=== PATIENT | female | born 1940 | race Caucasian/White ===

== ENCOUNTER 2016-10-16 11:48 | Inpatient (IN) | payer MEDICARE, OTHER ==
[~2016-10-16] VITALS: Ht 165.1 cm; Wt 110.2 kg
[~2016-10-16 11:48] MED LIST: ACIPHEX20 MG PO; AKWA TEARS15 ML BOTH EYES; AMARYL1 MG PO; CLEOCIN HCL300 MG PO; CLINDAMYCIN HC300 MG ORAL; DIOVAN HCT 80-1 EACH PO; FUROSEMIDE40 MG/4 ML IVP; GLIMEPIRIDE1 MG ORAL; JANUVIA100 MG PO; JANUVIA25 MG ORAL; OYST CAL D PO; PROMETHAZINE/COD5 ML PO; PROTONIX40 M1 IVP; SENNA LAX8.6 MG PO; SINGULAIR10 MG PO; SYNTHROID200 MCG PO; SYNTHROID25 MCG ORAL; VESICARE5 MG PO; VIBRAMYCIN100 MG ORAL; VITAMIN D3 PO
[2016-10-16] MEDS ORDERED: ROBITUSSIN AC5 ML ORAL (14:12)
[2016-10-16] MEDS ORDERED: MYRBETRIQ50 MG PO (14:12)
[2016-10-16] MEDS ORDERED: VENTOLIN HFA18 GM INH (14:12)
[2016-10-16] MEDS ORDERED: PERFOROMIS20 MCG/2 M IH (14:12)
[2016-10-16] MEDS ORDERED: NEURONTIN100 MG ORAL (14:12)
[2016-10-16] MEDS ORDERED: VAGIFEM10 MC1 VG (14:12)
[2016-10-16] MEDS ORDERED: IMITREX50 MG ORAL (14:12)
[2016-10-16] MEDS ORDERED: CLOTRIMAZOLE15 GM TOPIC (14:12)
[2016-10-16] MEDS ORDERED: NASONEX17 GM NASAL (14:12)
[2016-10-16] MEDS ORDERED: GLIMEPIRIDE1 MG ORAL (14:12)
[2016-10-16] MEDS ORDERED: RESTASIS1 EACH BOTH EYES (14:12)
[2016-10-16] MEDS ORDERED: FUROSEMIDE20 M1 ORAL (14:12)
[2016-10-16] MEDS ORDERED: DIOVAN HCT 1601 EAC1 ORAL (14:12)
[2016-10-16] MEDS ORDERED: DEXILANT60 MG ORAL (14:12)
[2016-10-16] MEDS ORDERED: CLARITIN10 MG ORAL (14:12)
[2016-10-16] MEDS ORDERED: PATADAY2.5 ML BOTH EYES (14:12)
[2016-10-16] MEDS ORDERED: PULMICORT0.5 MG/2 M IH (14:12)
[2016-10-16] MEDS ORDERED: DuoNeb 0.5-3(2.5)mg/3ml neb HHN PRN (14:15)
[2016-10-16] MEDS ORDERED: Zolpidem 5mg tab ORAL PRN (14:15)
--- NOTE | 2016-10-16 15:30 | Diagnostic Imaging Report ---
Indication: Dyspnea Comparison: 04/30/16 A single view chest radiograph was obtained. Findings: Pulmonary vascularity is prominent. Heart is enlarged. There is suggestion of basilar atelectasis. The findings are similar to the last study. Old rib fractures again noted on the left. Impression: CHF Basilar atelectasis
[2016-10-16] MEDS ORDERED: Clobetasol Cream 0.05% 15gm TOPIC PRN (15:45)
[2016-10-16] MEDS ORDERED: guaiFENesin w/Codeine 5ml Liq ud ORAL PRN (15:45)
[2016-10-16] MEDS ORDERED: SUMAtriptan 100mg tab ORAL PRN (15:45)
[2016-10-16 16:05] VITALS: BP 98/47
[2016-10-16 16:18] LABS: ABG ALLEN TEST POSITIVE; ABG BASE EXCESS 8.9; ABG PCO2 91.1 mmHg (35.0-45.0)
--- NOTE | 2016-10-16 16:21 | History & Physical ---
History and Physical History & Physicial Vital Signs -Extended Height: 65 inches Weight: 300 pounds Temperature: 98.6 degrees F ( oral) Pulse rate: 86 /min Pulse rhythm: regular Respirations: 12 /min O2 Sat: 66% Blood Pressure: 111/66 mm Hg Calculations Body Mass Index: 50.10 Body Surface Area (m2): 2.35 History of Present Illness Hx. Source: patient Primary complaint: FOLLOW UP Duration: days Trend of sx: worsening Fever: none Treatment: see med list Trend of Tx: worsens Additional HPI: 76 year old female patient presents today for evaluation for severe shortness of breath and significant hypoxemia which is worsening in severity. Patient is severely short of breath and congested. Patient is taking her prescribed medications as directed and is compliant. Patient refused hospitalization Patient admits to shortness of breath, cough, sputum production, chest tightness , and difficulty taking a breath. Patient also admits to some nasal congestion. Active Medications (reviewed today): LASIX 20 MG TABS (FUROSEMIDE) 1 by mouth every am GUAIFENESIN AC 100-10 MG/5ML ORAL SYRP (GUAIFENESIN-CODEINE) 5 cc q 4hr prn TOBRADEX 0.3-0.1 % OPHTH SUSP (TOBRAMYCIN-DEXAMETHASONE) 2 drips qid x 7 days GABAPENTIN 300 MG ORAL CAPS (GABAPENTIN) Take one tablet daily prn VAGIFEM 10 MCG VAG TABS (ESTRADIOL) 2 tabs weekly MYRBETRIQ 50 MG ORAL [id number] (MIRABEGRON) Take one tablet daily SYNTHROID 50 MCG ORAL TABS (LEVOTHYROXINE SODIUM) Take one tablet daily VALSARTAN-HYDROCHLOROTHIAZIDE 160-25 MG ORAL TABS (VALSARTAN-HYDROCHLOROTHIAZIDE ) Take one tablet daily MONTELUKAST SODIUM 10 MG ORAL TABS (MONTELUKAST SODIUM) Take one tablet daily at bedtime SUMATRIPTAN SUCCINATE 100 MG ORAL TABS (SUMATRIPTAN SUCCINATE) SYNTHROID 200 MCG ORAL TABS (LEVOTHYROXINE SODIUM) Take one tablet daily RESTASIS 0.05 % OPHTH EMUL (CYCLOSPORINE) 1 drop in each eye daily CLOTRIMAZOLE 1 % EXT CREA (CLOTRIMAZOLE) apply daily CLOBETASOL PROPIONATE 0.05 % EXT CREA (CLOBETASOL PROPIONATE) apply daily prn FLUOCINONIDE 0.05 % EXT CREA (FLUOCINONIDE) apply directed prn MOMETASONE FUROATE 0.1 % EXT CREA (MOMETASONE FUROATE) apply directed prn EPIPEN 2-BELIA 0.3 MG/0.3ML SOAJ (EPINEPHRINE) use as directed by prescriber XOLAIR 150 MG SC SOLR (OMALIZUMAB) 225mg sq 2 weeks PULMICORT 0.5 MG/2ML SUSP (BUDESONIDE) inhale twice daily DEXILANT 60 MG CPDR (DEXLANSOPRAZOLE) 1 tab qd VITAMIN D3 1000 UNIT CAPS (CHOLECALCIFEROL) 1 tab bid VESICARE 10 MG TABS (SOLIFENACIN SUCCINATE) 1 tab qd IMITREX 100 MG ORAL TABS (SUMATRIPTAN SUCCINATE) 1 TAB PRN MIGRAINE NASONEX 50 MCG/ACT SUSP (MOMETASONE FUROATE) 2 puffs daily each nostril PATADAY 0.2 % SOLN (OLOPATADINE HCL) 1 DROP EACH EYE DAILY VENTOLIN HFA 108 (90 BASE) MCG/ACT INH AERS (ALBUTEROL SULFATE) 2 puffs ever 4 hours CLARITIN 10 MG TABS (LORATADINE) 1 by mouth every day JANUVIA 100 MG TABS (SITAGLIPTIN PHOSPHATE) 1 tab po daily GLIMEPIRIDE 1 MG ORAL TABS (GLIMEPIRIDE) Take one tablet daily PERFOROMIST 20 MCG/2ML INH NEBU (FORMOTEROL FUMARATE) BID Current Allergies (reviewed today): PENICILLIN (PENICILLIN V POTASSIUM) (Mild) * CITRUS (Mild) Past History Past Medical History (reviewed - no changes required): Patient indicates medical history of hypertension, asthma. Other medical history includes: hypersomnia,leg edema,.anterior mediastianal mass, asthma exacerbation (06/22); recurrent lung mass hospitalized to psychiatric unit [facility] 07/2014 hospitolized due to edema and open wound of the legs Hospital admission to 03/07/16 for leg cellulitis Hospital admission 04/2016 cellulitis and respiratory failure Surgical History (reviewed - no changes required): Patient reports surgical history to include: lung surgery. thymoma removed 2012; underwent radiology (followed by Dr. Palacio) Family History (reviewed - no changes required): Father is . He had thrombophlebitis and it moved to the brain. Mother is . She had a cerebral hemorrhage due to a fall and hitting her head. Social History (reviewed - no changes required): TITA is a retired person. TITA lives alone. She lives at home in [place]. She is widown ; 1 child; TITA's denominational is Christianity. Risk Factors: Smoked Tobacco Use: Never smoker Smokeless Tobacco Use: Never Passive smoke exposure: no Drug use: no HIV high-risk behavior: no Caffeine use: <1 drinks per day Alcohol use: no Seatbelt use: 100 % Sun Exposure: frequently Review of Systems General: weight change due to water weight Eyes: denies blurring, diplopia, irritation, discharge, vision loss, eye pain, photophobia Ear/Nose/Throat: nasal congestion URI symptoms Cardiovascular: peripheral edema with venous changes chronic Respiratory: See HPI Gastrointestinal: Denies nausea, vomiting, diarrhea, constipation, change in bowel habits, abdominal pain, melena, hematochezia, jaundice Genitourinary: stress incontinence ( with cough) Musculoskeletal: arthritis Skin: right leg cellulitis in the past Neurologic: denies transient paralysis, weakness, paresthesias, seizures, syncope, tremors, vertigo Psychiatric: was admitted to psych unit in [place] 2013 Endocrine: denies cold intolerance, heat intolerance, polydipsia, polyphagia, polyuria, weight change Hematologic/Lymphatic: denies abnormal bruising, bleeding, enlarged lymph nodes Allergic/Immunologic: allergic rash under breast and on both arms Physical Exam Respiratory Respiratory Effort: no intercostal retractions or use of accessory muscles Palpation: normal fremitus Auscultation: significant rhonchi and wheezes with poor air entry Cardiovascular Palpation: no thrill or palpable murmurs, no displacement of PMI Auscultation: S1, S2, no rub, or gallop; noted systolic murmur Peripheral Circulation: significant lymphedema and swelling Musculoskeletal Gait and Station: using walker Digits and nails: no clubbing, cyanosis, petechiae, or nodes Assessment Respiratory failure Asthma Hypercapnia Sleep apnea possible pneumonia profound hypoxemia obesity Lymphedema Diabetes Plan IV Steroids IV antibiotics Respiratory care Oxygen therapy ABG routine labs resume home meds BIPAP at HS and PRN oxygen therapy and titrate guarded overall PHIL VELASCO Oct 16, 2016 16:21
[2016-10-16 16:23] LABS: ANION GAP 9 (5-15); BASOPHILS % (AUTO) 1.3 % (0.0-2.0); CALCIUM 8.9 mg/dL (8.6-10.2); CARBON DIOXIDE 34 mEQ/L (20-30); CHLORIDE 95 mEQ/L (98-107); CREATININE 0.7 mg/dL (0.5-0.9); EOSINOPHILS % (AUTO) 0.7 % (0.0-3.0); HEMOLYSIS 3; LYMPHOCYTES % (AUTO) 8.5 % (20.0-45.0); MEAN CORPUSCULAR HEMOGLOBIN 26.9 PG (27.0-31.0); MEAN CORPUSCULAR HGB CONC 31.1 G/DL (32.0-36.0); MEAN CORPUSCULAR VOLUME 87 FL (80-99); MEAN PLATELET VOLUME 6.4 FL (6.5-10.1); MONOCYTES % (AUTO) 9.4 % (1.0-10.0); NEUTROPHILS % (AUTO) 80.2 % (45.0-75.0); PLATELET COUNT 275 K/UL (150-450); POTASSIUM 4.6 mEQ/L (3.4-4.9); RED BLOOD COUNT 4.39 M/UL (4.20-5.40); RED CELL DISTRIBUTION WIDTH 15.6 % (11.6-14.8); SODIUM 138 mEQ/L (135-145)
[2016-10-16] MEDS ORDERED: Montelukast 10mg tablet ORAL SCH (16:30)
[2016-10-16] MEDS: NovoLOG Insulin Flexpen SUBQ SCH ×3 (17:30→20:51)
[2016-10-16] MEDS: Vitamin D 1000 IU Tab ORAL SCH (18:00)
[2016-10-16] MEDS ORDERED: cefTRIAXone 1 GM in D5W 55 ML IVPB SCH (18:00)
[2016-10-16] MEDS ORDERED: Vancomycin 1.5 GM/D5W 325 ML IVPB ONE ×2 (19:00)
[2016-10-16] MEDS: Budesonide HHN 0.25mg/2ml ud HHN SCH (19:15)
[2016-10-16] MEDS: DuoNeb 0.5-3(2.5)mg/3ml neb HHN SCH ×2 (19:15→22:51)
[2016-10-16 20:00] VITALS: BP 109/53
[2016-10-16] MEDS: Heparin 5000 units/ml inj SUBQ SCH (20:34)
[2016-10-16] MEDS ORDERED: Levofloxacin 500mg tab ORAL SCH (21:00)
[2016-10-16] MEDS: Solu-MEDROL 40mg Inj IVP SCH (21:32)
[2016-10-17] VITALS: BP 111/51
[2016-10-17] MEDS: DuoNeb 0.5-3(2.5)mg/3ml neb HHN SCH ×7 (02:32→23:05)
[2016-10-17 04:00] VITALS: BP_SYST 115; BP_SYST 145; BP_DIAS 49; BP_DIAS 77
[2016-10-17] MEDS: Solu-MEDROL 40mg Inj IVP SCH ×3 (06:07→21:33)
[2016-10-17] MEDS: NovoLOG Insulin Flexpen SUBQ SCH ×4 (06:30→21:40)
[2016-10-17] MEDS ORDERED: sitaGLIPtin 50mg tab ORAL SCH (06:30)
[2016-10-17] MEDS ORDERED: Levothyroxine 125mcg tab ORAL SCH (06:30)
[2016-10-17] MEDS ORDERED: Glimepiride 1mg tab ORAL SCH (06:30)
[2016-10-17] MEDS ORDERED: Vancomycin 1gm in D5W 275ml IVPB SCH (07:00)
[2016-10-17 08:00] VITALS: BP 95/40
[2016-10-17] MEDS: Heparin 5000 units/ml inj SUBQ SCH ×2 (09:00→21:37)
[2016-10-17] MEDS ORDERED: Solifenacin 10mg tab ORAL SCH (09:00)
[2016-10-17] MEDS ORDERED: Irbesartan 150mg tablet ORAL SCH (09:00)
[2016-10-17] MEDS: Vitamin D 1000 IU Tab ORAL SCH ×2 (09:09→18:14)
--- NOTE | 2016-10-17 09:09 | Pulmonology Progress Note ---
Assessment/Plan Assessment/Plan Assessment Respiratory failure Asthma Hypercapnia Sleep apnea CHF profound hypoxemia obesity Lymphedema Diabetes Plan IV Steroids IV antibiotics IV lasix Respiratory care Oxygen therapy ABG routine labs resumed home meds BIPAP at HS and PRN oxygen therapy and titrate guarded overall may benefit from tele transfer; await ABG impression, plan, and exam edited and reviewed in detail care discussed with RN Subjective Allergies: Coded Allergies: [place] (Unverified Allergy, Unknown, 05/06/16) PENICILLINS (Verified Allergy, Unknown, 06/30/12) Subjective sleepy but arouseable uneventful night fluid overloaded Objective Last 24 Hour Vital Signs Date Time Temp Pulse Resp B/P Pulse Ox O2 Delivery O2 Flow Rate FiO2 10/17/16 09:00 95/40 10/17/16 08:00 97.3 74 16 95/40 97 Room Air 10/17/16 07:53 95 Nasal Cannula 4.0 36 10/17/16 07:53 Nasal Cannula 4.0 36 10/17/16 07:41 68 20 98 Nasal Cannula 4.0 36 10/17/16 07:33 65 20 95 Nasal Cannula 4.0 36 10/17/16 04:00 98.0 72 20 115/49 87 Room Air 10/17/16 02:30 75 20 98 Nasal Cannula 4.0 36 10/17/16 02:25 63 20 93 Nasal Cannula 4.0 36 10/17/16 00:00 97.9 90 22 111/51 93 Bi-pap 10/16/16 22:50 72 20 98 Nasal Cannula 4.0 36 10/16/16 22:45 80 20 95 Nasal Cannula 4.0 36 10/16/16 20:00 97.9 66 18 109/53 92 Nasal Cannula 5.0 10/16/16 19:56 70 25 95 Facial 40 10/16/16 19:11 75 20 98 Nasal Cannula 4.0 36 10/16/16 19:06 80 20 98 Nasal Cannula 4.0 36 10/16/16 19:05 83 20 98 Nasal Cannula 4.0 36 10/16/16 19:00 80 20 93 Nasal Cannula 4.0 36 10/16/16 17:23 60 17 95 Facial 40 10/16/16 17:23 60 17 Bi-pap 40 10/16/16 16:05 98.2 105 18 98/47 92 Nasal Cannula 5.0 Intake and Output 10/16/16 10/17/16 19:00 07:00 Intake Total 240 ml Balance 240 ml Intake Oral 240 ml # Voids 2 Objective WDWN female morbidly obese NAD coarse breath sounds bilaterally with some rhonchi [id number] without MRG NABS nontender no HSM no CC significant anasarca nonfocal Laboratory Tests 10/16/16 15:45: White Blood Count 9.0, Red Blood Count 4.39, Hemoglobin 11.8L, Hematocrit 38.0, Mean Corpuscular Volume 87, Mean Corpuscular Hemoglobin 26.9L, Mean Corpuscular Hemoglobin Concent 31.1L, Red Cell Distribution Width 15.6H, Platelet Count 275 , Mean Platelet Volume 6.4L, Neutrophils (%) (Auto) 80.2H, Lymphocytes (%) (Auto ) 8.5L, Monocytes (%) (Auto) 9.4, Eosinophils (%) (Auto) 0.7, Basophils (%) ( Auto) 1.3, Sodium Level 138, Potassium Level 4.6, Chloride Level 95L, Carbon Dioxide Level 34H, Anion Gap 9, Blood Urea Nitrogen 11, Creatinine 0.7, Estimat Glomerular Filtration Rate , Glucose Level 126H, Hemoglobin A1c 6.9H, Calcium Level 8.9 10/16/16 16:05: Arterial Blood pH 7.252L, Arterial Blood Partial Pressure CO2 91.1*H, Arterial Blood Partial Pressure O2 70.7L, Arterial Blood HCO3 39.2H, Arterial Blood Oxygen Saturation 90.3L, Arterial Blood Base Excess 8.9, Jacob Test Positive Current Medications Medications (Trade) Dose Ordered Sig/Chalo Route PRN Reason Start Time Stop Time Status Last Admin Dose Admin Acetaminophen (Tylenol) 650 mg Q4H PRN ORAL Mild Pain/Temp > 100.5 10/16/16 14:15 11/15/16 14:14 Al Hydroxide/Mg Hydroxide (Mylanta) 30 ml Q4H PRN ORAL INDIGESTION 10/16/16 14:15 11/15/16 14:14 Albuterol/ Ipratropium (DuoNeb 0.5-3(2.5)mg/3ml) 3 ml Q4H PRN HHN Shortness of Breath 10/16/16 14:15 10/21/16 14:14 Albuterol/ Ipratropium (DuoNeb 0.5-3(2.5)mg/3ml) 3 ml Q4HRT HHN 10/16/16 19:00 10/21/16 18:59 10/17/16 07:33 Budesonide (Pulmicort) 0.5 mg EVERY 12 HOURS HHN 10/16/16 21:00 11/15/16 20:59 10/16/16 19:15 Clobetasol Propionate (Temovate) 1 applic DAILY PRN TOPIC Itching 10/16/16 15:45 11/15/16 15:44 UNV Clotrimazole (Lotrimin) 1 applic DAILY TOPIC 10/17/16 09:00 11/16/16 08:59 UNV Dextrose (Dextrose 50%) STAT PRN IV Hypoglycemia 10/16/16 15:45 11/15/16 15:44 Estradiol (Estrace) 20 mg QWEEK ORAL 10/16/16 15:45 11/15/16 15:44 UNV Furosemide (Lasix) 20 mg DAILY ORAL 10/17/16 09:00 11/16/16 08:59 Gabapentin (Neurontin) 300 mg DAILYPRN PRN ORAL NEUROPATHIC PAIN 10/16/16 15:45 11/15/16 15:44 Glimepiride (Amaryl) 1 mg ACBREAKFAST ORAL 10/17/16 06:30 11/16/16 06:29 10/17/16 06:06 Guaifenesin/ Codeine Phosphate (Robitussin with codeine) 5 ml Q4H PRN ORAL For Cough 10/16/16 15:45 11/15/16 15:44 Heparin Sodium (Porcine) (Heparin 5000 units/ml) 5,000 units EVERY 12 HOURS SUBQ 10/16/16 21:00 11/15/16 20:59 Hydrochlorothiazide (Hydrodiuril) 25 mg DAILY ORAL 10/17/16 09:00 11/16/16 08:59 Insulin Aspart (NovoLOG) BEFORE MEALS AND HS SUBQ 10/16/16 17:30 11/15/16 17:29 Irbesartan (Avapro) 150 mg DAILY ORAL 10/17/16 09:00 11/16/16 08:59 Levofloxacin (Levaquin) 500 mg QHS ORAL 10/16/16 21:00 10/23/16 20:59 10/16/16 20:32 Levothyroxine Sodium (Synthroid) 250 mcg ACBREAKFAST ORAL 10/17/16 06:30 11/16/16 06:29 10/17/16 06:07 Methylprednisolone Sodium Succinate (Solu-MEDROL) 40 mg EVERY 8 HOURS IVP 10/16/16 22:00 11/15/16 21:59 10/17/16 06:07 Montelukast Sodium (Singulair) 10 mg QPM ORAL 10/16/16 16:30 11/15/16 16:29 10/16/16 16:30 Non-Formulary Medication (Non-Formulary Med) 1 ea DAILY ORAL 10/17/16 09:00 11/16/16 08:59 UNV Pantoprazole (Protonix) 40 mg DAILY ORAL 10/17/16 09:00 11/16/16 08:59 Sitagliptin Phosphate (Januvia) 50 mg ACBREAKFAST ORAL 10/17/16 06:30 11/16/16 06:29 10/17/16 06:07 Solifenacin (Vesicare) 10 mg DAILY ORAL 10/17/16 09:00 11/16/16 08:59 Sumatriptan Succinate (Imitrex) 100 mg DAILY PRN ORAL PRN MIGRAINE 10/16/16 15:45 11/15/16 15:44 Vancomycin HCl 1 ea 1 ea DAILY PRN MISC PRN RX PROTOCOL 10/16/16 17:45 11/15/16 17:44 Vancomycin HCl/ Dextrose (Vancomycin/D5W) 275 ml @ 183.708 mls/hr Q12HR@0700,1900 IVPB 10/17/16 07:00 10/22/16 06:59 10/17/16 06:32 Vitamin D (Vitamin D) 1,000 intlu BID ORAL 10/16/16 18:00 11/15/16 17:59 10/16/16 18:00 Zolpidem Tartrate (Ambien) 10 mg HSPRN PRN ORAL Insomnia 10/16/16 14:15 11/15/16 14:14 PHIL VELASCO Oct 17, 2016 09:09
[2016-10-17 09:18] LABS: ABG PCO2 93.5 mmHg (35.0-45.0)
[2016-10-17 09:19] LABS: ABG ALLEN TEST POSITIVE; ABG BASE EXCESS 6.5
[2016-10-17] MEDS: Budesonide HHN 0.25mg/2ml ud HHN SCH ×2 (09:23→19:10)
[2016-10-17] MEDS ORDERED: guaiFENesin w/Codeine 5ml Liq ud ORAL PRN (11:45)
[2016-10-17 12:00] VITALS: BP 125/72
[2016-10-17 12:01] LABS: ABG BASE EXCESS 9.1; ABG PCO2 97.9 mmHg (35.0-45.0)
[2016-10-17 12:02] LABS: ABG ALLEN TEST POSITIVE
[2016-10-17] MEDS ORDERED: DuoNeb 0.5-3(2.5)mg/3ml neb HHN PRN (14:15)
[2016-10-17] MEDS ORDERED: Zolpidem 5mg tab ORAL PRN (14:15)
--- NOTE | 2016-10-17 14:25 | General Progress Note ---
Assessment/Plan Problem List: (1) Atelectasis vs Pneumonia (2) Possible pneumonia (3) Shortness of breath ICD Codes: R06.02 - Shortness of breath SNOMED: 152625094 (4) Diabetes mellitus ICD Codes: E11.9 - Type 2 diabetes mellitus without complications SNOMED: 08563391 (5) Edema ICD Codes: R60.9 - Edema, unspecified SNOMED: 749405695 (6) Obesity ICD Codes: E66.9 - Obesity, unspecified SNOMED: 124664684 (7) CHF (congestive heart failure), NYHA class IV ICD Codes: I50.9 - Heart failure, unspecified SNOMED: 838949955, 025750455 (8) Asthma ICD Codes: J45.909 - Unspecified asthma, uncomplicated SNOMED: 923943829 Status: not improved Assessment/Plan iv steroids resp rx abx monitor bs dvt/stress ulcer prophylaxis Subjective ROS Limited/Unobtainable: No Constitutional: Reports: malaise, weakness HEENT: Reports: no symptoms Cardiovascular: Reports: no symptoms Respiratory: Reports: cough, shortness of breath, sputum Gastrointestinal/Abdominal: Reports: no symptoms Genitourinary: Reports: no symptoms Neurologic/Psychiatric: Reports: no symptoms Endocrine: Reports: no symptoms Hematologic/Lymphatic: Reports: no symptoms Allergies: Coded Allergies: [place] (Unverified Allergy, Unknown, 05/06/16) PENICILLINS (Verified Allergy, Unknown, 06/30/12) All Systems: reviewed and negative except above Subjective remains congested and sob. +cough. no cp Objective Last 24 Hour Vital Signs Date Time Temp Pulse Resp B/P Pulse Ox O2 Delivery O2 Flow Rate FiO2 10/17/16 13:12 77 17 93 Facial 36 10/17/16 12:00 96.6 60 25 125/72 94 Bi-pap 40 10/17/16 10:52 69 20 94 Nasal Cannula 4.0 36 10/17/16 10:44 61 25 91 Bi-pap 40 10/17/16 10:40 75 23 92 Facial 40 10/17/16 09:31 69 22 96 Nasal Cannula 4.0 36 10/17/16 09:23 68 22 92 Nasal Cannula 4.0 36 10/17/16 09:00 95/40 10/17/16 08:00 97.3 74 16 95/40 97 Room Air 10/17/16 07:53 95 Nasal Cannula 4.0 36 10/17/16 07:53 Nasal Cannula 4.0 36 10/17/16 07:41 68 20 98 Nasal Cannula 4.0 36 10/17/16 07:33 65 20 95 Nasal Cannula 4.0 36 10/17/16 04:00 98.0 72 20 115/49 87 Room Air 10/17/16 02:30 75 20 98 Nasal Cannula 4.0 36 10/17/16 02:25 63 20 93 Nasal Cannula 4.0 36 10/17/16 00:00 97.9 90 22 111/51 93 Bi-pap 10/16/16 22:50 72 20 98 Nasal Cannula 4.0 36 10/16/16 22:45 80 20 95 Nasal Cannula 4.0 36 10/16/16 20:00 97.9 66 18 109/53 92 Nasal Cannula 5.0 10/16/16 19:56 70 25 95 Facial 40 10/16/16 19:11 75 20 98 Nasal Cannula 4.0 36 10/16/16 19:06 80 20 98 Nasal Cannula 4.0 36 10/16/16 19:05 83 20 98 Nasal Cannula 4.0 36 10/16/16 19:00 80 20 93 Nasal Cannula 4.0 36 10/16/16 17:23 60 17 95 Facial 40 10/16/16 17:23 60 17 Bi-pap 40 10/16/16 16:05 98.2 105 18 98/47 92 Nasal Cannula 5.0 Intake and Output 10/16/16 10/17/16 19:00 07:00 Intake Total 240 ml Balance 240 ml Intake Oral 240 ml # Voids 2 Laboratory Tests 10/16/16 15:45: White Blood Count 9.0, Red Blood Count 4.39, Hemoglobin 11.8L, Hematocrit 38.0, Mean Corpuscular Volume 87, Mean Corpuscular Hemoglobin 26.9L, Mean Corpuscular Hemoglobin Concent 31.1L, Red Cell Distribution Width 15.6H, Platelet Count 275 , Mean Platelet Volume 6.4L, Neutrophils (%) (Auto) 80.2H, Lymphocytes (%) (Auto ) 8.5L, Monocytes (%) (Auto) 9.4, Eosinophils (%) (Auto) 0.7, Basophils (%) ( Auto) 1.3, Sodium Level 138, Potassium Level 4.6, Chloride Level 95L, Carbon Dioxide Level 34H, Anion Gap 9, Blood Urea Nitrogen 11, Creatinine 0.7, Estimat Glomerular Filtration Rate , Glucose Level 126H, Hemoglobin A1c 6.9H, Calcium Level 8.9 10/16/16 16:05: Arterial Blood pH 7.252L, Arterial Blood Partial Pressure CO2 91.1*H, Arterial Blood Partial Pressure O2 70.7L, Arterial Blood HCO3 39.2H, Arterial Blood Oxygen Saturation 90.3L, Arterial Blood Base Excess 8.9, Jacob Test Positive 10/17/16 09:08: Arterial Blood pH 7.219*L, Arterial Blood Partial Pressure CO2 93.5*H, Arterial Blood Partial Pressure O2 58.0L, Arterial Blood HCO3 37.3H, Arterial Blood Oxygen Saturation 86.1L, Arterial Blood Base Excess 6.5, Jacob Test Positive 10/17/16 11:43: Arterial Blood pH 7.230*L, Arterial Blood Partial Pressure CO2 97.9*H, Arterial Blood Partial Pressure O2 72.8L, Arterial Blood HCO3 40.1H, Arterial Blood Oxygen Saturation 91.9L, Arterial Blood Base Excess 9.1, Jacob Test Positive Height (Feet): 5 Height (Inches): 5.00 Weight (Pounds): 243 General Appearance: WD/WN, alert Neck: supple Cardiovascular: regular rhythm Respiratory/Chest: crackles/rales, rhonchi - bilaterally, expiratory wheezing Abdomen: normal bowel sounds, non tender, soft, no organomegaly Edema: no edema noted Arm (L), no edema noted Arm (R), no edema noted Leg (L), no edema noted Leg (R), no edema noted Pedal (L), no edema noted Pedal (R), no edema noted Generalized AMBER MARTINEZ Oct 17, 2016 14:25
[2016-10-17 14:35] LABS: ABG BASE EXCESS 9.4; ABG PCO2 86.2 mmHg (35.0-45.0)
[2016-10-17 14:36] LABS: ABG ALLEN TEST POSITIVE
[2016-10-17 15:54] VITALS: BP 133/69
[2016-10-17] MEDS: Montelukast 10mg tablet ORAL SCH (17:05)
[2016-10-17] MEDS ORDERED: Clobetasol Cream 0.05% 15gm TOPIC PRN (18:00)
[2016-10-17 20:00] VITALS: BP 111/69
[2016-10-17] MEDS: Vancomycin 1 GM in D5W 275 ML IVPB SCH (20:25)
[2016-10-17] MEDS: Levofloxacin 500mg tab ORAL SCH (21:33)
[2016-10-18] VITALS: BP 120/56
[2016-10-18] MEDS: DuoNeb 0.5-3(2.5)mg/3ml neb HHN SCH ×6 (03:42→23:02)
[2016-10-18 04:00] VITALS: BP 102/61
[2016-10-18] MEDS: Glimepiride 1mg tab ORAL SCH (06:18)
[2016-10-18] MEDS: Solu-MEDROL 40mg Inj IVP SCH ×3 (06:18→21:57)
[2016-10-18] MEDS: sitaGLIPtin 50mg tab ORAL SCH (06:18)
[2016-10-18] MEDS: Levothyroxine 125mcg tab ORAL SCH (06:19)
[2016-10-18] MEDS: NovoLOG Insulin Flexpen SUBQ SCH ×4 (06:20→20:51)
[2016-10-18 07:11] LABS: ANION GAP 11 (5-15); CALCIUM 8.7 mg/dL (8.6-10.2); CARBON DIOXIDE 33 mEQ/L (20-30); CHLORIDE 95 mEQ/L (98-107); CREATININE 0.6 mg/dL (0.5-0.9); HEMOLYSIS 24; POTASSIUM 5.2 mEQ/L (3.4-4.9); SODIUM 139 mEQ/L (135-145)
[2016-10-18 08:00] VITALS: BP 114/57
--- NOTE | 2016-10-18 08:51 | Pulmonology Progress Note ---
Assessment/Plan Assessment/Plan Assessment Respiratory failure Asthma Hypercapnia Sleep apnea CHF profound hypoxemia obesity Lymphedema Diabetes Plan IV Steroids IV antibiotics IV lasix Respiratory care Oxygen therapy ABG routine labs resumed home meds BIPAP at HS and PRN; now continuous oxygen therapy and titrate guarded overall follow up labs may benefit from tele transfer; await ABG impression, plan, and exam edited and reviewed in detail care discussed with RN Subjective Allergies: Coded Allergies: [place] (Unverified Allergy, Unknown, 05/06/16) PENICILLINS (Verified Allergy, Unknown, 06/30/12) Subjective sleepy but no distress BIPAP acidotic Objective Last 24 Hour Vital Signs Date Time Temp Pulse Resp B/P Pulse Ox O2 Delivery O2 Flow Rate FiO2 10/18/16 08:00 97.7 80 22 114/57 93 Nasal Cannula 6.0 10/18/16 07:20 Nasal Cannula 5.0 40 10/18/16 07:20 80 14 95 Nasal Cannula 40 10/18/16 07:20 81 14 96 Nasal Cannula 5.0 40 10/18/16 07:20 95 Nasal Cannula 5.0 40 10/18/16 04:00 97.5 69 20 102/61 92 Nasal Cannula 5.0 10/18/16 04:00 77 10/18/16 03:48 79 13 99 Bi-pap 40 10/18/16 03:47 78 16 95 Facial 40 10/18/16 03:41 79 14 95 Bi-pap 40 10/18/16 00:47 75 23 94 Facial 40 10/18/16 00:00 97.4 61 22 120/56 94 Bi-pap 40 10/18/16 00:00 75 10/17/16 23:12 76 13 97 Bi-pap 40 10/17/16 23:05 71 20 93 Facial 40 10/17/16 23:04 71 14 93 Bi-pap 40 10/17/16 21:38 76 15 94 Facial 40 10/17/16 20:00 98.0 58 15 111/69 92 Bi-pap 40 10/17/16 20:00 74 10/17/16 19:15 82 22 93 Bi-pap 40 10/17/16 19:12 71 13 93 Bi-pap 40 10/17/16 19:11 71 13 93 Bi-pap 40 10/17/16 19:01 87 24 92 Facial 40 10/17/16 19:00 87 26 94 Bi-pap 40 10/17/16 18:59 Bi-pap 10/17/16 18:59 Bi-pap 40 10/17/16 18:58 94 Bi-pap 40 10/17/16 17:21 66 16 92 Facial 36 10/17/16 16:00 70 10/17/16 15:54 98.1 62 18 133/69 Bi-pap 10/17/16 15:30 63 14 92 Facial 36 10/17/16 15:01 65 20 92 Bi-pap 36 10/17/16 14:51 63 25 92 Bi-pap 40 10/17/16 13:12 77 17 93 Facial 36 10/17/16 12:00 61 10/17/16 12:00 96.6 60 25 125/72 94 Bi-pap 40 10/17/16 11:30 63 10/17/16 10:52 69 20 94 Nasal Cannula 4.0 36 10/17/16 10:44 61 25 91 Bi-pap 40 10/17/16 10:40 75 23 92 Facial 40 10/17/16 09:31 69 22 96 Nasal Cannula 4.0 36 10/17/16 09:23 68 22 92 Nasal Cannula 4.0 36 10/17/16 09:00 95/40 Intake and Output 10/17/16 10/18/16 19:00 07:00 Intake Total 275.000 ml 560 ml Output Total 500 ml Balance 275.000 ml 60 ml Intake Oral 560 ml IV Total 275.000 ml Output Urine Total 500 ml # Voids 2 6 Objective WDWN female morbidly obese NAD coarse breath sounds bilaterally with some rhonchi and crackles [id number] without MRG distant NABS nontender no HSM no CC significant anasarca with minimal improvement noted leg erythema nonfocal Laboratory Tests 10/17/16 09:08: Arterial Blood pH 7.219*L, Arterial Blood Partial Pressure CO2 93.5*H, Arterial Blood Partial Pressure O2 58.0L, Arterial Blood HCO3 37.3H, Arterial Blood Oxygen Saturation 86.1L, Arterial Blood Base Excess 6.5, Jacob Test Positive 10/17/16 11:43: Arterial Blood pH 7.230*L, Arterial Blood Partial Pressure CO2 97.9*H, Arterial Blood Partial Pressure O2 72.8L, Arterial Blood HCO3 40.1H, Arterial Blood Oxygen Saturation 91.9L, Arterial Blood Base Excess 9.1, Jacob Test Positive 10/17/16 14:25: Arterial Blood pH 7.257L, Arterial Blood Partial Pressure CO2 86.2*H, Arterial Blood Partial Pressure O2 59.5L, Arterial Blood HCO3 39.1H, Arterial Blood Oxygen Saturation 87.6L, Arterial Blood Base Excess 9.4, Jacob Test Positive 10/18/16 06:15: Sodium Level 139, Potassium Level 5.2H, Chloride Level 95L, Carbon Dioxide Level 33H, Anion Gap 11, Blood Urea Nitrogen 16, Creatinine 0.6, Estimat Glomerular Filtration Rate , Glucose Level 215H, Calcium Level 8.7, Vancomycin Level Trough 10.1 Current Medications Medications (Trade) Dose Ordered Sig/Chalo Route PRN Reason Start Time Stop Time Status Last Admin Dose Admin Acetaminophen (Tylenol) 650 mg Q4H PRN ORAL Mild Pain/Temp > 100.5 10/17/16 14:15 11/16/16 14:14 Al Hydroxide/Mg Hydroxide (Mylanta) 30 ml Q4H PRN ORAL INDIGESTION 10/17/16 14:15 11/16/16 14:14 Albuterol/ Ipratropium (DuoNeb 0.5-3(2.5)mg/3ml) 3 ml Q4H PRN HHN Shortness of Breath 10/17/16 14:15 10/22/16 14:14 Albuterol/ Ipratropium (DuoNeb 0.5-3(2.5)mg/3ml) 3 ml Q4HRT N 10/17/16 11:00 10/22/16 10:59 10/18/16 07:22 Budesonide (Pulmicort) 0.5 mg EVERY 12 HOURS N 10/17/16 21:00 11/16/16 20:59 10/17/16 19:10 Clobetasol Propionate (Temovate) 1 applic DAILY PRN TOPIC Itching 10/17/16 18:00 11/16/16 17:59 Clotrimazole (Lotrimin) 1 applic DAILY TOPIC 10/18/16 09:00 11/17/16 08:59 UNV Dextrose (Dextrose 50%) STAT PRN IV Hypoglycemia 10/17/16 15:45 11/16/16 15:44 Estradiol (Estrace) 20 mg QWEEK ORAL 10/23/16 15:45 11/22/16 15:44 UNV Furosemide (Lasix) 40 mg DAILY IV 10/17/16 11:00 11/16/16 10:59 10/17/16 12:21 Gabapentin (Neurontin) 300 mg DAILYPRN PRN ORAL NEUROPATHIC PAIN 10/17/16 15:45 11/16/16 15:44 Glimepiride (Amaryl) 1 mg ACBREAKFAST ORAL 10/18/16 06:30 11/17/16 06:29 10/18/16 06:18 Guaifenesin/ Codeine Phosphate (Robitussin with codeine) 5 ml Q4H PRN ORAL For Cough 10/17/16 11:45 11/16/16 11:44 Heparin Sodium (Porcine) (Heparin 5000 units/ml) 5,000 units EVERY 12 HOURS SUBQ 10/17/16 21:00 11/16/16 20:59 10/17/16 21:37 Hydrochlorothiazide (Hydrodiuril) 25 mg DAILY ORAL 10/18/16 09:00 11/17/16 08:59 Insulin Aspart (NovoLOG) BEFORE MEALS AND HS SUBQ 10/17/16 11:30 11/16/16 11:29 10/18/16 06:20 Irbesartan (Avapro) 150 mg DAILY ORAL 10/18/16 09:00 11/17/16 08:59 Levofloxacin (Levaquin) 500 mg QHS ORAL 10/17/16 21:00 10/22/16 21:01 10/17/16 21:33 Levothyroxine Sodium (Synthroid) 250 mcg ACBREAKFAST ORAL 10/18/16 06:30 11/17/16 06:29 10/18/16 06:19 Methylprednisolone Sodium Succinate (Solu-MEDROL) 40 mg EVERY 8 HOURS IVP 10/17/16 14:00 11/16/16 13:59 10/18/16 06:18 Montelukast Sodium (Singulair) 10 mg QPM ORAL 10/17/16 16:30 11/16/16 16:29 10/17/16 17:05 Non-Formulary Medication (Non-Formulary Med) 1 ea DAILY ORAL 10/18/16 09:00 11/17/16 08:59 UNV Pantoprazole (Protonix) 40 mg DAILY ORAL 10/18/16 09:00 11/17/16 08:59 Sitagliptin Phosphate (Januvia) 50 mg ACBREAKFAST ORAL 10/18/16 06:30 11/17/16 06:29 10/18/16 06:18 Solifenacin (Vesicare) 10 mg DAILY ORAL 10/18/16 09:00 11/17/16 08:59 Sumatriptan Succinate (Imitrex) 100 mg DAILY PRN ORAL PRN MIGRAINE 10/18/16 09:00 11/17/16 08:59 Vancomycin HCl (Vanco rx to dose) 1 ea DAILY PRN MISC PRN RX PROTOCOL 10/18/16 09:00 11/17/16 08:59 Vancomycin HCl/ Dextrose (Vancomycin/D5W) 275 ml @ 183.708 mls/hr Q12HR@0800,2000 IVPB 10/17/16 20:00 10/22/16 07:59 10/17/16 20:25 Vitamin D (Vitamin D) 1,000 intlu BID ORAL 10/17/16 18:00 11/16/16 17:59 10/17/16 18:14 Zolpidem Tartrate (Ambien) 5 mg HSPRN PRN ORAL Insomnia 10/17/16 14:15 11/16/16 14:14 PHIL VELASCO Oct 18, 2016 08:51
[2016-10-18] MEDS: Irbesartan 150mg tablet ORAL SCH (09:00)
[2016-10-18] MEDS: Vancomycin 1 GM in D5W 275 ML IVPB SCH ×2 (09:15→20:40)
[2016-10-18] MEDS: Budesonide HHN 0.25mg/2ml ud HHN SCH ×2 (09:19→21:21)
[2016-10-18 09:32] LABS: ABG ALLEN TEST POSITIVE; ABG BASE EXCESS 13.1; ABG PCO2 97.4 mmHg (35.0-45.0)
[2016-10-18] MEDS: Vitamin D 1000 IU Tab ORAL SCH ×2 (09:47→18:29)
[2016-10-18] MEDS: Solifenacin 10mg tab ORAL SCH (09:48)
[2016-10-18] MEDS: Heparin 5000 units/ml inj SUBQ SCH ×2 (09:56→20:46)
[2016-10-18 12:00] VITALS: BP 100/54
[2016-10-18 16:00] VITALS: BP 116/68
[2016-10-18] MEDS: Montelukast 10mg tablet ORAL SCH (16:40)
[2016-10-18 20:00] VITALS: BP 137/77
--- NOTE | 2016-10-18 20:31 | General Progress Note ---
Assessment/Plan Problem List: (1) Atelectasis vs Pneumonia (2) Possible pneumonia (3) Shortness of breath ICD Codes: R06.02 - Shortness of breath SNOMED: 791802039 (4) Diabetes mellitus ICD Codes: E11.9 - Type 2 diabetes mellitus without complications SNOMED: 94538820 (5) Edema ICD Codes: R60.9 - Edema, unspecified SNOMED: 186913453 (6) Obesity ICD Codes: E66.9 - Obesity, unspecified SNOMED: 572337802 (7) CHF (congestive heart failure), NYHA class IV ICD Codes: I50.9 - Heart failure, unspecified SNOMED: 710541823, 236467485 (8) Asthma ICD Codes: J45.909 - Unspecified asthma, uncomplicated SNOMED: 009698998 Status: stable, progressing Assessment/Plan iv steroids resp rx diuresis per pulm abx monitor bs dvt/stress ulcer prophylaxis monitor labs and cxr tenous, minimal improvement Subjective ROS Limited/Unobtainable: No Constitutional: Reports: malaise, weakness HEENT: Reports: no symptoms Cardiovascular: Reports: no symptoms Respiratory: Reports: shortness of breath, sputum, wheezing Gastrointestinal/Abdominal: Reports: no symptoms Genitourinary: Reports: no symptoms Neurologic/Psychiatric: Reports: no symptoms Endocrine: Reports: no symptoms Hematologic/Lymphatic: Reports: no symptoms Allergies: Coded Allergies: [place] (Unverified Allergy, Unknown, 05/06/16) PENICILLINS (Verified Allergy, Unknown, 06/30/12) All Systems: reviewed and negative except above Subjective remains congested and sob. +cough. no chest pain feels a little better still very tenuous. pulm noted. Objective Last 24 Hour Vital Signs Date Time Temp Pulse Resp B/P Pulse Ox O2 Delivery O2 Flow Rate FiO2 10/18/16 18:59 85 16 95 Nasal Cannula 5.0 40 10/18/16 18:46 92 Nasal Cannula 5.0 40 10/18/16 18:46 Nasal Cannula 5.0 40 10/18/16 18:45 40 10/18/16 18:45 83 16 92 Nasal Cannula 5.0 40 10/18/16 16:00 97.9 76 18 116/68 92 Nasal Cannula 5.0 10/18/16 15:13 84 16 95 Nasal Cannula 5.0 40 10/18/16 15:13 85 14 94 Nasal Cannula 40 10/18/16 12:00 98.1 93 22 100/54 98 Mechanical Ventilator 40 10/18/16 12:00 82 10/18/16 11:45 83 14 96 Nasal Cannula 5.0 40 10/18/16 11:45 82 14 95 Nasal Cannula 40 10/18/16 09:40 79 18 94 Facial 40 10/18/16 09:19 71 13 Nasal Cannula 5.0 40 10/18/16 09:19 80 20 91 Nasal Cannula 5.0 40 10/18/16 09:00 99/51 10/18/16 08:00 80 10/18/16 08:00 97.7 80 22 114/57 93 Nasal Cannula 6.0 10/18/16 07:20 Nasal Cannula 5.0 40 10/18/16 07:20 80 14 95 Nasal Cannula 40 10/18/16 07:20 81 14 96 Nasal Cannula 5.0 40 10/18/16 07:20 95 Nasal Cannula 5.0 40 10/18/16 04:00 97.5 69 20 102/61 92 Nasal Cannula 5.0 10/18/16 04:00 77 10/18/16 03:48 79 13 99 Bi-pap 40 10/18/16 03:47 78 16 95 Facial 40 10/18/16 03:41 79 14 95 Bi-pap 40 10/18/16 00:47 75 23 94 Facial 40 10/18/16 00:00 97.4 61 22 120/56 94 Bi-pap 40 10/18/16 00:00 75 10/17/16 23:12 76 13 97 Bi-pap 40 10/17/16 23:05 71 20 93 Facial 40 10/17/16 23:04 71 14 93 Bi-pap 40 10/17/16 21:38 76 15 94 Facial 40 Intake and Output 10/17/16 10/18/16 19:00 07:00 Intake Total 275.000 ml 560 ml Output Total 500 ml Balance 275.000 ml 60 ml Intake Oral 560 ml IV Total 275.000 ml Output Urine Total 500 ml # Voids 2 6 Laboratory Tests 10/18/16 06:15: Sodium Level 139, Potassium Level 5.2H, Chloride Level 95L, Carbon Dioxide Level 33H, Anion Gap 11, Blood Urea Nitrogen 16, Creatinine 0.6, Estimat Glomerular Filtration Rate , Glucose Level 215H, Calcium Level 8.7, Vancomycin Level Trough 10.1 10/18/16 09:11: Arterial Blood pH 7.271L, Arterial Blood Partial Pressure CO2 97.4*H, Arterial Blood Partial Pressure O2 53.0L, Arterial Blood HCO3 43.8H, Arterial Blood Oxygen Saturation 84.6L, Arterial Blood Base Excess 13.1, Jacob Test Positive Height (Feet): 5 Height (Inches): 5.00 Weight (Pounds): 243 General Appearance: WD/WN, alert Neck: supple Cardiovascular: normal rate Respiratory/Chest: accessory muscle use, crackles/rales, rhonchi - bilaterally , expiratory wheezing Abdomen: normal bowel sounds, non tender, soft, no organomegaly, no mass Extremities: non-tender Edema: trace edema Neurologic: esthetician spa II-XII grossly normal, no motor/sensory deficits, alert, oriented x 3, responsive AMBER MARTINEZ Oct 18, 2016 20:31
[2016-10-18] MEDS: Levofloxacin 500mg tab ORAL SCH (20:41)
[2016-10-19 00:58] VITALS: BP 117/78
[2016-10-19] MEDS: DuoNeb 0.5-3(2.5)mg/3ml neb HHN SCH ×6 (03:17→23:18)
[2016-10-19 04:00] VITALS: BP 133/77
[2016-10-19 05:20] LABS: CALCIUM 9.6 mg/dL (8.6-10.2); CHLORIDE 93 mEQ/L (98-107); CREATININE 0.7 mg/dL (0.5-0.9); HEMOLYSIS 0; POTASSIUM 4.5 mEQ/L (3.4-4.9); SODIUM 143 mEQ/L (135-145)
[2016-10-19 05:24] LABS: ANION GAP 10 (5-15); CARBON DIOXIDE 40 mEQ/L (20-30)
[2016-10-19] MEDS: Glimepiride 1mg tab ORAL SCH (05:53)
[2016-10-19] MEDS: Solu-MEDROL 40mg Inj IVP SCH (05:53)
[2016-10-19] MEDS: sitaGLIPtin 50mg tab ORAL SCH (05:54)
[2016-10-19] MEDS: Levothyroxine 125mcg tab ORAL SCH (05:56)
[2016-10-19] MEDS: NovoLOG Insulin Flexpen SUBQ SCH ×4 (05:58→21:00)
[2016-10-19 07:28] LABS: ABG ALLEN TEST POSITIVE; ABG BASE EXCESS 12.5; ABG PCO2 86.2 mmHg (35.0-45.0)
[2016-10-19 07:42] LABS: BASOPHILS % (AUTO) 0.4 % (0.0-2.0); EOSINOPHILS % (AUTO) 0.3 % (0.0-3.0); MEAN CORPUSCULAR HEMOGLOBIN 26.4 PG (27.0-31.0); MEAN CORPUSCULAR HGB CONC 30.3 G/DL (32.0-36.0); MEAN CORPUSCULAR VOLUME 87 FL (80-99); MEAN PLATELET VOLUME 5.8 FL (6.5-10.1); MONOCYTES % (AUTO) 12.3 % (1.0-10.0); PLATELET COUNT 281 K/UL (150-450); RED BLOOD COUNT 4.54 M/UL (4.20-5.40); RED CELL DISTRIBUTION WIDTH 15.6 % (11.6-14.8); WHITE BLOOD COUNT 8.6 K/UL (4.8-10.8)
[2016-10-19 08:00] VITALS: BP 125/67
--- NOTE | 2016-10-19 08:06 | Pulmonology Progress Note ---
Assessment/Plan Assessment/Plan Assessment Respiratory failure Asthma Hypercapnia Sleep apnea CHF profound hypoxemia obesity Lymphedema Diabetes Plan IV Steroids-dc and monitor IV antibiotics IV lasix Respiratory care Oxygen therapy ABG routine labs and monitor resumed home meds BIPAP at HS and PRN; oxygen therapy and titrate guarded overall follow up labs monitor ABG impression, plan, and exam edited and reviewed in detail care discussed with RN Subjective Allergies: Coded Allergies: [place] (Unverified Allergy, Unknown, 05/06/16) PENICILLINS (Verified Allergy, Unknown, 06/30/12) Subjective more alert BIPAP off but was on last night acidotic but improved Objective Last 24 Hour Vital Signs Date Time Temp Pulse Resp B/P Pulse Ox O2 Delivery O2 Flow Rate FiO2 10/19/16 07:35 95 Nasal Cannula 5.0 10/19/16 04:00 96 10/19/16 04:00 98.0 85 24 133/77 97 Nasal Cannula 4.0 10/19/16 03:45 92 16 100 Nasal Cannula 5.0 40 10/19/16 03:17 40 10/19/16 03:17 71 16 96 Nasal Cannula 5.0 40 10/19/16 00:58 97.7 75 20 117/78 93 Nasal Cannula 4.0 10/19/16 00:00 60 10/18/16 23:15 89 16 95 Bi-pap 40 10/18/16 23:04 40 10/18/16 23:03 87 16 96 Bi-pap 40 10/18/16 22:58 78 24 96 Facial 40 10/18/16 21:35 89 14 97 10/18/16 21:32 89 14 97 Nasal Cannula 5.0 40 10/18/16 21:23 83 14 94 Nasal Cannula 5.0 40 10/18/16 20:00 76 10/18/16 20:00 97.7 83 24 137/77 92 Nasal Cannula 5.0 10/18/16 18:59 85 16 95 Nasal Cannula 5.0 40 10/18/16 18:46 92 Nasal Cannula 5.0 40 10/18/16 18:46 Nasal Cannula 5.0 40 10/18/16 18:45 40 10/18/16 18:45 83 16 92 Nasal Cannula 5.0 40 10/18/16 16:00 97.9 76 18 116/68 92 Nasal Cannula 5.0 10/18/16 16:00 67 10/18/16 15:13 84 16 95 Nasal Cannula 5.0 40 10/18/16 15:13 85 14 94 Nasal Cannula 40 10/18/16 12:00 98.1 93 22 100/54 98 Mechanical Ventilator 40 10/18/16 12:00 82 10/18/16 11:45 83 14 96 Nasal Cannula 5.0 40 10/18/16 11:45 82 14 95 Nasal Cannula 40 10/18/16 09:40 79 18 94 Facial 40 10/18/16 09:19 71 13 Nasal Cannula 5.0 40 10/18/16 09:19 80 20 91 Nasal Cannula 5.0 40 10/18/16 09:00 99/51 Intake and Output 10/18/16 10/19/16 19:00 07:00 Intake Total 895.000 ml 720 ml Balance 895.000 ml 720 ml Intake Oral 620 ml 720 ml IV Total 275.000 ml # Voids 5 11 Objective WDWN female morbidly obese NAD improved breath sounds bilaterally with reduced rhonchi and crackles [id number] without MRG distant NABS nontender no HSM no CC significant anasarca with some improvement noted leg erythema and edema nonfocal Laboratory Tests 10/18/16 09:11: Arterial Blood pH 7.271L, Arterial Blood Partial Pressure CO2 97.4*H, Arterial Blood Partial Pressure O2 53.0L, Arterial Blood HCO3 43.8H, Arterial Blood Oxygen Saturation 84.6L, Arterial Blood Base Excess 13.1, Jacob Test Positive 10/19/16 04:00: White Blood Count 8.6, Red Blood Count 4.54, Hemoglobin 12.0, Hematocrit 39.6, Mean Corpuscular Volume 87, Mean Corpuscular Hemoglobin 26.4L, Mean Corpuscular Hemoglobin Concent 30.3L, Red Cell Distribution Width 15.6H, Platelet Count 281 , Mean Platelet Volume 5.8L, Neutrophils (%) (Auto) 75.0, Lymphocytes (%) (Auto ) 12.0L, Monocytes (%) (Auto) 12.3H, Eosinophils (%) (Auto) 0.3, Basophils (%) ( Auto) 0.4, Sodium Level 143, Potassium Level 4.5, Chloride Level 93L, Carbon Dioxide Level 40H, Anion Gap 10, Blood Urea Nitrogen 19, Creatinine 0.7, Estimat Glomerular Filtration Rate , Glucose Level 125H, Calcium Level 9.6, Phosphorus Level [Pending], Magnesium Level [Pending] 10/19/16 07:15: Arterial Blood pH 7.300L, Arterial Blood Partial Pressure CO2 86.2*H, Arterial Blood Partial Pressure O2 94.0, Arterial Blood HCO3 42.2H, Arterial Blood Oxygen Saturation 95.6, Arterial Blood Base Excess 12.5, Jacob Test Positive Current Medications Medications (Trade) Dose Ordered Sig/Chalo Route PRN Reason Start Time Stop Time Status Last Admin Dose Admin Acetaminophen (Tylenol) 650 mg Q4H PRN ORAL Mild Pain/Temp > 100.5 10/17/16 14:15 11/16/16 14:14 Al Hydroxide/Mg Hydroxide (Mylanta) 30 ml Q4H PRN ORAL INDIGESTION 10/17/16 14:15 11/16/16 14:14 Albuterol/ Ipratropium (DuoNeb 0.5-3(2.5)mg/3ml) 3 ml Q4H PRN HHN Shortness of Breath 10/17/16 14:15 10/22/16 14:14 Albuterol/ Ipratropium (DuoNeb 0.5-3(2.5)mg/3ml) 3 ml Q4HRT HHN 10/17/16 11:00 10/22/16 10:59 10/19/16 03:17 Budesonide (Pulmicort) 0.5 mg EVERY 12 HOURS HHN 10/17/16 21:00 11/16/16 20:59 10/18/16 21:21 Clobetasol Propionate (Temovate) 1 applic DAILY PRN TOPIC Itching 10/17/16 18:00 11/16/16 17:59 Clotrimazole (Lotrimin) 1 applic DAILY TOPIC 10/18/16 09:00 11/17/16 08:59 UNV Dextrose (Dextrose 50%) STAT PRN IV Hypoglycemia 10/17/16 15:45 11/16/16 15:44 Estradiol (Estrace) 20 mg QWEEK ORAL 10/23/16 15:45 11/22/16 15:44 UNV Furosemide (Lasix) 40 mg DAILY IV 10/17/16 11:00 11/16/16 10:59 10/18/16 09:47 Gabapentin (Neurontin) 300 mg DAILYPRN PRN ORAL NEUROPATHIC PAIN 10/17/16 15:45 11/16/16 15:44 Glimepiride (Amaryl) 1 mg ACBREAKFAST ORAL 10/18/16 06:30 11/17/16 06:29 10/19/16 05:53 Guaifenesin/ Codeine Phosphate (Robitussin with codeine) 5 ml Q4H PRN ORAL For Cough 10/17/16 11:45 11/16/16 11:44 Heparin Sodium (Porcine) (Heparin 5000 units/ml) 5,000 units EVERY 12 HOURS SUBQ 10/17/16 21:00 11/16/16 20:59 10/18/16 20:46 Hydrochlorothiazide (Hydrodiuril) 25 mg DAILY ORAL 10/18/16 09:00 11/17/16 08:59 10/18/16 09:45 Insulin Aspart (NovoLOG) BEFORE MEALS AND HS SUBQ 10/17/16 11:30 11/16/16 11:29 10/19/16 05:58 Irbesartan (Avapro) 150 mg DAILY ORAL 10/18/16 09:00 11/17/16 08:59 Levofloxacin (Levaquin) 500 mg QHS ORAL 10/17/16 21:00 10/22/16 21:01 10/18/16 20:41 Levothyroxine Sodium (Synthroid) 250 mcg ACBREAKFAST ORAL 10/18/16 06:30 11/17/16 06:29 10/19/16 05:56 Methylprednisolone Sodium Succinate (Solu-MEDROL) 40 mg EVERY 8 HOURS IVP 10/17/16 14:00 11/16/16 13:59 10/19/16 05:53 Montelukast Sodium (Singulair) 10 mg QPM ORAL 10/17/16 16:30 11/16/16 16:29 10/18/16 16:40 Non-Formulary Medication (Non-Formulary Med) 1 ea DAILY ORAL 10/18/16 09:00 11/17/16 08:59 UNV Pantoprazole (Protonix) 40 mg DAILY ORAL 10/18/16 09:00 11/17/16 08:59 10/18/16 09:47 Sitagliptin Phosphate (Januvia) 50 mg ACBREAKFAST ORAL 10/18/16 06:30 11/17/16 06:29 10/19/16 05:54 Solifenacin (Vesicare) 10 mg DAILY ORAL 10/18/16 09:00 11/17/16 08:59 10/18/16 09:48 Sumatriptan Succinate (Imitrex) 100 mg DAILY PRN ORAL PRN MIGRAINE 10/18/16 09:00 11/17/16 08:59 Vancomycin HCl (Vanco rx to dose) 1 ea DAILY PRN MISC PRN RX PROTOCOL 10/18/16 09:00 11/17/16 08:59 Vancomycin HCl/ Dextrose (Vancomycin/D5W) 275 ml @ 183.708 mls/hr Q12HR@0800,2000 IVPB 10/17/16 20:00 10/22/16 07:59 10/18/16 20:40 Vitamin D (Vitamin D) 1,000 intlu BID ORAL 10/17/16 18:00 11/16/16 17:59 10/18/16 18:29 Zolpidem Tartrate (Ambien) 5 mg HSPRN PRN ORAL Insomnia 10/17/16 14:15 11/16/16 14:14 PHIL VELASCO Oct 19, 2016 08:06
[2016-10-19 08:15] LABS: MAGNESIUM 2.1 mg/dL (1.7-2.5); PHOSPHORUS 3.1 mg/dL (2.5-4.8)
[2016-10-19] MEDS: Budesonide HHN 0.25mg/2ml ud HHN SCH ×2 (09:08→21:10)
[2016-10-19] MEDS: Solifenacin 10mg tab ORAL SCH (09:59)
[2016-10-19] MEDS: Vitamin D 1000 IU Tab ORAL SCH ×2 (09:59→17:43)
[2016-10-19] MEDS: Vancomycin 1 GM in D5W 275 ML IVPB SCH (10:00)
[2016-10-19] MEDS: Irbesartan 150mg tablet ORAL SCH (10:00)
[2016-10-19] MEDS: Heparin 5000 units/ml inj SUBQ SCH ×2 (10:05→21:01)
--- NOTE | 2016-10-19 10:25 | General Progress Note ---
Assessment/Plan Problem List: (1) Atelectasis vs Pneumonia (2) Possible pneumonia (3) Shortness of breath ICD Codes: R06.02 - Shortness of breath SNOMED: 966702377 (4) Diabetes mellitus ICD Codes: E11.9 - Type 2 diabetes mellitus without complications SNOMED: 68508731 (5) Edema ICD Codes: R60.9 - Edema, unspecified SNOMED: 219926706 (6) Obesity ICD Codes: E66.9 - Obesity, unspecified SNOMED: 163193959 (7) CHF (congestive heart failure), NYHA class IV ICD Codes: I50.9 - Heart failure, unspecified SNOMED: 982847378, 827167100 (8) Asthma ICD Codes: J45.909 - Unspecified asthma, uncomplicated SNOMED: 441237194 Status: stable, progressing Assessment/Plan off steroids resp rx diuresis per pulm abx monitor bs dvt/stress ulcer prophylaxis monitor labs and cxr improving Subjective ROS Limited/Unobtainable: No Constitutional: Reports: malaise, weakness HEENT: Reports: no symptoms Cardiovascular: Reports: no symptoms Respiratory: Reports: cough, shortness of breath, sputum, wheezing Gastrointestinal/Abdominal: Reports: no symptoms Genitourinary: Reports: no symptoms Neurologic/Psychiatric: Reports: no symptoms Endocrine: Reports: no symptoms Hematologic/Lymphatic: Reports: no symptoms Allergies: Coded Allergies: [place] (Unverified Allergy, Unknown, 05/06/16) PENICILLINS (Verified Allergy, Unknown, 06/30/12) All Systems: reviewed and negative except above Subjective better. much less congested. pulm noted. off steroids per pulm. Objective Last 24 Hour Vital Signs Date Time Temp Pulse Resp B/P Pulse Ox O2 Delivery O2 Flow Rate FiO2 10/19/16 10:00 125/67 10/19/16 09:12 89 20 96 Nasal Cannula 5.0 10/19/16 09:01 88 18 93 Nasal Cannula 5.0 10/19/16 08:25 89 20 98 Nasal Cannula 5.0 10/19/16 08:11 88 20 92 Nasal Cannula 5.0 10/19/16 08:00 97.7 94 19 125/67 93 Nasal Cannula 5.0 10/19/16 08:00 91 10/19/16 07:42 Nasal Cannula 5.0 10/19/16 07:35 95 Nasal Cannula 5.0 10/19/16 04:00 96 10/19/16 04:00 98.0 85 24 133/77 97 Nasal Cannula 4.0 10/19/16 03:45 92 16 100 Nasal Cannula 5.0 40 10/19/16 03:17 40 10/19/16 03:17 71 16 96 Nasal Cannula 5.0 40 10/19/16 00:58 97.7 75 20 117/78 93 Nasal Cannula 4.0 10/19/16 00:00 60 10/18/16 23:15 89 16 95 Bi-pap 40 10/18/16 23:04 40 10/18/16 23:03 87 16 96 Bi-pap 40 10/18/16 22:58 78 24 96 Facial 40 10/18/16 21:35 89 14 97 10/18/16 21:32 89 14 97 Nasal Cannula 5.0 40 10/18/16 21:23 83 14 94 Nasal Cannula 5.0 40 10/18/16 20:00 76 10/18/16 20:00 97.7 83 24 137/77 92 Nasal Cannula 5.0 10/18/16 18:59 85 16 95 Nasal Cannula 5.0 40 10/18/16 18:46 92 Nasal Cannula 5.0 40 10/18/16 18:46 Nasal Cannula 5.0 40 10/18/16 18:45 40 10/18/16 18:45 83 16 92 Nasal Cannula 5.0 40 10/18/16 16:00 97.9 76 18 116/68 92 Nasal Cannula 5.0 10/18/16 16:00 67 10/18/16 15:13 84 16 95 Nasal Cannula 5.0 40 10/18/16 15:13 85 14 94 Nasal Cannula 40 10/18/16 12:00 98.1 93 22 100/54 98 Mechanical Ventilator 40 10/18/16 12:00 82 10/18/16 11:45 83 14 96 Nasal Cannula 5.0 40 10/18/16 11:45 82 14 95 Nasal Cannula 40 Intake and Output 10/18/16 10/19/16 19:00 07:00 Intake Total 895.000 ml 720 ml Balance 895.000 ml 720 ml Intake Oral 620 ml 720 ml IV Total 275.000 ml # Voids 5 11 Laboratory Tests 10/19/16 04:00: White Blood Count 8.6, Red Blood Count 4.54, Hemoglobin 12.0, Hematocrit 39.6, Mean Corpuscular Volume 87, Mean Corpuscular Hemoglobin 26.4L, Mean Corpuscular Hemoglobin Concent 30.3L, Red Cell Distribution Width 15.6H, Platelet Count 281 , Mean Platelet Volume 5.8L, Neutrophils (%) (Auto) 75.0, Lymphocytes (%) (Auto ) 12.0L, Monocytes (%) (Auto) 12.3H, Eosinophils (%) (Auto) 0.3, Basophils (%) ( Auto) 0.4, Sodium Level 143, Potassium Level 4.5, Chloride Level 93L, Carbon Dioxide Level 40H, Anion Gap 10, Blood Urea Nitrogen 19, Creatinine 0.7, Estimat Glomerular Filtration Rate , Glucose Level 125H, Calcium Level 9.6, Phosphorus Level 3.1, Magnesium Level 2.1 10/19/16 07:15: Arterial Blood pH 7.300L, Arterial Blood Partial Pressure CO2 86.2*H, Arterial Blood Partial Pressure O2 94.0, Arterial Blood HCO3 42.2H, Arterial Blood Oxygen Saturation 95.6, Arterial Blood Base Excess 12.5, Jacob Test Positive Height (Feet): 5 Height (Inches): 5.00 Weight (Pounds): 243 General Appearance: WD/WN, alert Neck: supple Cardiovascular: normal rate, regular rhythm Respiratory/Chest: rhonchi - bilaterally Abdomen: normal bowel sounds, non tender, soft, no organomegaly Edema: no edema noted Arm (L), no edema noted Arm (R), no edema noted Leg (L), no edema noted Leg (R), no edema noted Pedal (L), no edema noted Pedal (R), no edema noted 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
[2016-10-19 12:00] VITALS: BP 113/62
[2016-10-19 16:00] VITALS: BP 100/59
[2016-10-19] MEDS: Montelukast 10mg tablet ORAL SCH (16:24)
[2016-10-19 20:00] VITALS: BP 128/64
[2016-10-19] MEDS: Vancomycin 1.25 GM in D5W 275 ML IVPB SCH (20:10)
[2016-10-19] MEDS: Levofloxacin 500mg tab ORAL SCH (21:00)
[2016-10-20] VITALS: BP 144/80
[2016-10-20] MEDS: DuoNeb 0.5-3(2.5)mg/3ml neb HHN SCH ×6 (03:28→23:25)
[2016-10-20 04:00] VITALS: BP 145/88
[2016-10-20] MEDS: NovoLOG Insulin Flexpen SUBQ SCH ×4 (05:49→20:58)
[2016-10-20] MEDS: Glimepiride 1mg tab ORAL SCH (06:35)
[2016-10-20] MEDS: sitaGLIPtin 50mg tab ORAL SCH (06:35)
[2016-10-20] MEDS: Levothyroxine 125mcg tab ORAL SCH (06:36)
[2016-10-20 07:32] LABS: CALCIUM 9.4 mg/dL (8.6-10.2); CHLORIDE 90 mEQ/L (98-107); CREATININE 0.7 mg/dL (0.5-0.9); HEMOLYSIS 4; POTASSIUM 4.1 mEQ/L (3.4-4.9); SODIUM 140 mEQ/L (135-145)
[2016-10-20 07:41] LABS: ANION GAP 9 (5-15)
[2016-10-20 07:50] LABS: CARBON DIOXIDE 41 mEQ/L (20-30)
[2016-10-20 08:00] VITALS: BP 104/62
[2016-10-20] MEDS: Vancomycin 1.25 GM in D5W 275 ML IVPB SCH (08:37)
[2016-10-20] MEDS: Heparin 5000 units/ml inj SUBQ SCH ×2 (08:38→20:57)
[2016-10-20] MEDS: Solifenacin 10mg tab ORAL SCH (08:39)
[2016-10-20] MEDS: Vitamin D 1000 IU Tab ORAL SCH ×2 (08:39→17:55)
[2016-10-20] MEDS: SUMAtriptan 100mg tab ORAL PRN (08:39)
[2016-10-20] MEDS: Irbesartan 150mg tablet ORAL SCH (09:00)
[2016-10-20] MEDS: Budesonide HHN 0.25mg/2ml ud HHN SCH ×2 (09:05→18:56)
--- NOTE | 2016-10-20 09:54 | Pulmonology Progress Note ---
Assessment/Plan Assessment/Plan Assessment Respiratory failure Asthma Hypercapnia Sleep apnea CHF profound hypoxemia obesity Lymphedema Diabetes Plan IV Steroids-off IV antibiotics- dc IV lasix additional day Respiratory care Oxygen therapy ABG routine labs and monitor resumed home meds BIPAP at HS and PRN; oxygen therapy and titrate guarded overall follow up labs monitor ABG in am impression, plan, and exam edited and reviewed in detail care discussed with RN Subjective Allergies: Coded Allergies: [place] (Unverified Allergy, Unknown, 05/06/16) PENICILLINS (Verified Allergy, Unknown, 06/30/12) Subjective remains alert BIPAP off using at night Objective Last 24 Hour Vital Signs Date Time Temp Pulse Resp B/P Pulse Ox O2 Delivery O2 Flow Rate FiO2 10/20/16 08:00 98.2 73 21 104/62 97 10/20/16 07:42 85 20 100 Nasal Cannula 5.0 40 10/20/16 07:27 Nasal Cannula 5.0 40 10/20/16 07:27 83 20 94 Nasal Cannula 5.0 40 10/20/16 07:27 94 Nasal Cannula 5.0 40 10/20/16 07:27 40 10/20/16 04:00 97.4 89 20 145/88 96 Nasal Cannula 5.0 10/20/16 04:00 82 10/20/16 03:39 92 16 95 Nasal Cannula 5.0 40 10/20/16 03:31 40 10/20/16 03:30 86 16 96 Nasal Cannula 5.0 40 10/20/16 00:00 97.0 99 20 144/80 97 Nasal Cannula 5.0 10/20/16 00:00 82 10/19/16 23:30 88 16 98 Nasal Cannula 5.0 40 10/19/16 23:21 40 10/19/16 23:20 88 16 96 Nasal Cannula 5.0 40 10/19/16 22:00 89 16 99 10/19/16 21:32 92 16 96 Nasal Cannula 5.0 40 10/19/16 21:13 40 10/19/16 21:12 89 16 95 Nasal Cannula 5.0 40 10/19/16 20:00 97.5 87 20 128/64 94 Nasal Cannula 5.0 10/19/16 20:00 87 10/19/16 19:00 81 16 98 Nasal Cannula 5.0 40 10/19/16 18:44 Nasal Cannula 5.0 40 10/19/16 18:43 95 Nasal Cannula 5.0 40 10/19/16 18:43 40 10/19/16 18:43 85 16 96 Nasal Cannula 5.0 40 10/19/16 16:00 83 10/19/16 16:00 98.2 83 22 100/59 96 Nasal Cannula 5.0 10/19/16 15:26 85 20 98 Nasal Cannula 10/19/16 15:15 69 18 94 Nasal Cannula 5.0 10/19/16 12:00 97.5 85 25 113/62 90 Nasal Cannula 5.0 10/19/16 12:00 90 10/19/16 11:05 91 20 100 Bi-pap 30 10/19/16 10:55 65 23 72 Facial 30 10/19/16 10:55 65 23 78 Room Air 5.0 10/19/16 10:00 125/67 Intake and Output 10/19/16 10/20/16 19:00 07:00 Intake Total 395.000 ml 755.000 ml Output Total 400 ml Balance -5.000 ml 755.000 ml Intake Oral 120 ml 480 ml IV Total 275.000 ml 275.000 ml Output Urine Total 400 ml # Voids 2 7 Objective WDWN female morbidly obese NAD improved breath sounds bilaterally with reduced rhonchi and crackles [id number] without MRG distant NABS nontender no HSM no CC significant anasarca with some improvement noted leg erythema and edema nonfocal Laboratory Tests 10/20/16 05:10: Sodium Level 140, Potassium Level 4.1, Chloride Level 90L, Carbon Dioxide Level 41*H, Anion Gap 9, Blood Urea Nitrogen 17, Creatinine 0.7, Estimat Glomerular Filtration Rate , Glucose Level 171H, Calcium Level 9.4 Current Medications Medications (Trade) Dose Ordered Sig/Chalo Route PRN Reason Start Time Stop Time Status Last Admin Dose Admin Acetaminophen (Tylenol) 650 mg Q4H PRN ORAL Mild Pain/Temp > 100.5 10/17/16 14:15 11/16/16 14:14 Al Hydroxide/Mg Hydroxide (Mylanta) 30 ml Q4H PRN ORAL INDIGESTION 10/17/16 14:15 11/16/16 14:14 Albuterol/ Ipratropium (DuoNeb 0.5-3(2.5)mg/3ml) 3 ml Q4H PRN HHN Shortness of Breath 10/17/16 14:15 10/22/16 14:14 Albuterol/ Ipratropium (DuoNeb 0.5-3(2.5)mg/3ml) 3 ml Q4HRT HHN 10/17/16 11:00 10/22/16 10:59 10/20/16 07:27 Budesonide (Pulmicort) 0.5 mg EVERY 12 HOURS HHN 10/17/16 21:00 11/16/16 20:59 10/19/16 21:10 Clobetasol Propionate (Temovate) 1 applic DAILY PRN TOPIC Itching 10/17/16 18:00 11/16/16 17:59 Clotrimazole (Lotrimin) 1 applic DAILY TOPIC 10/18/16 09:00 11/17/16 08:59 UNV Dextrose (Dextrose 50%) STAT PRN IV Hypoglycemia 10/17/16 15:45 11/16/16 15:44 Estradiol (Estrace) 20 mg QWEEK ORAL 10/23/16 15:45 11/22/16 15:44 UNV Furosemide (Lasix) 40 mg DAILY IV 10/17/16 11:00 11/16/16 10:59 10/20/16 08:38 Gabapentin (Neurontin) 300 mg DAILYPRN PRN ORAL NEUROPATHIC PAIN 10/17/16 15:45 11/16/16 15:44 Glimepiride (Amaryl) 1 mg ACBREAKFAST ORAL 10/18/16 06:30 11/17/16 06:29 10/20/16 06:35 Guaifenesin/ Codeine Phosphate (Robitussin with codeine) 5 ml Q4H PRN ORAL For Cough 10/17/16 11:45 11/16/16 11:44 10/19/16 10:00 Heparin Sodium (Porcine) (Heparin 5000 units/ml) 5,000 units EVERY 12 HOURS SUBQ 10/17/16 21:00 11/16/16 20:59 10/20/16 08:38 Hydrochlorothiazide (Hydrodiuril) 25 mg DAILY ORAL 10/18/16 09:00 11/17/16 08:59 10/20/16 08:39 Insulin Aspart (NovoLOG) BEFORE MEALS AND HS SUBQ 10/17/16 11:30 11/16/16 11:29 10/19/16 16:25 Irbesartan (Avapro) 150 mg DAILY ORAL 10/18/16 09:00 11/17/16 08:59 10/19/16 10:00 Levofloxacin (Levaquin) 500 mg QHS ORAL 10/17/16 21:00 10/22/16 21:01 10/19/16 21:00 Levothyroxine Sodium (Synthroid) 250 mcg ACBREAKFAST ORAL 10/18/16 06:30 11/17/16 06:29 10/20/16 06:36 Montelukast Sodium (Singulair) 10 mg QPM ORAL 10/17/16 16:30 11/16/16 16:29 10/19/16 16:24 Non-Formulary Medication (Non-Formulary Med) 1 ea DAILY ORAL 10/18/16 09:00 11/17/16 08:59 UNV Pantoprazole (Protonix) 40 mg DAILY ORAL 10/18/16 09:00 11/17/16 08:59 10/20/16 08:39 Sitagliptin Phosphate (Januvia) 50 mg ACBREAKFAST ORAL 10/18/16 06:30 11/17/16 06:29 10/20/16 06:35 Solifenacin (Vesicare) 10 mg DAILY ORAL 10/18/16 09:00 11/17/16 08:59 10/20/16 08:39 Sumatriptan Succinate (Imitrex) 100 mg DAILY PRN ORAL PRN MIGRAINE 10/18/16 09:00 11/17/16 08:59 10/20/16 08:39 Vancomycin HCl (Vanco rx to dose) 1 ea DAILY PRN MISC PRN RX PROTOCOL 10/18/16 09:00 11/17/16 08:59 Vancomycin HCl/ Dextrose (Vancomycin/D5W) 275 ml @ 183.708 mls/hr Q12HR@0800,2000 IVPB 10/19/16 20:00 10/24/16 19:59 10/20/16 08:37 Vitamin D (Vitamin D) 1,000 intlu BID ORAL 10/17/16 18:00 11/16/16 17:59 10/20/16 08:39 Zolpidem Tartrate 5 mg 5 mg HSPRN PRN ORAL Insomnia 10/17/16 14:15 11/16/16 14:14 PHIL VELASCO Oct 20, 2016 09:54
[2016-10-20 12:00] VITALS: BP 119/69
--- NOTE | 2016-10-20 13:39 | General Progress Note ---
Assessment/Plan Problem List: (1) Atelectasis vs Pneumonia (2) Possible pneumonia (3) Shortness of breath ICD Codes: R06.02 - Shortness of breath SNOMED: 650158400 (4) Diabetes mellitus ICD Codes: E11.9 - Type 2 diabetes mellitus without complications SNOMED: 25681787 (5) Edema ICD Codes: R60.9 - Edema, unspecified SNOMED: 639595644 (6) Obesity ICD Codes: E66.9 - Obesity, unspecified SNOMED: 281853783 (7) CHF (congestive heart failure), NYHA class IV ICD Codes: I50.9 - Heart failure, unspecified SNOMED: 609334400, 429301369 (8) Asthma ICD Codes: J45.909 - Unspecified asthma, uncomplicated SNOMED: 362912495 Status: stable, progressing Assessment/Plan off steroids resp rx diuresis per pulm abx monitor bs dvt/stress ulcer prophylaxis monitor labs and cxr improving Subjective ROS Limited/Unobtainable: No Constitutional: Reports: malaise, weakness HEENT: Reports: no symptoms Cardiovascular: Reports: no symptoms Respiratory: Reports: cough, orthopnea, shortness of breath, sputum, wheezing Gastrointestinal/Abdominal: Reports: no symptoms Genitourinary: Reports: no symptoms Neurologic/Psychiatric: Reports: no symptoms Endocrine: Reports: no symptoms Hematologic/Lymphatic: Reports: no symptoms Allergies: Coded Allergies: [place] (Unverified Allergy, Unknown, 05/06/16) PENICILLINS (Verified Allergy, Unknown, 06/30/12) All Systems: reviewed and negative except above Subjective still sob. less congested. no chest pain on iv lasix. off steroids per pulm. Objective Last 24 Hour Vital Signs Date Time Temp Pulse Resp B/P Pulse Ox O2 Delivery O2 Flow Rate FiO2 10/20/16 12:00 98.2 81 20 119/69 96 Nasal Cannula 5.0 10/20/16 12:00 69 10/20/16 09:00 104/62 10/20/16 08:00 98.2 73 21 104/62 97 10/20/16 08:00 74 10/20/16 07:42 85 20 100 Nasal Cannula 5.0 40 10/20/16 07:27 Nasal Cannula 5.0 40 10/20/16 07:27 83 20 94 Nasal Cannula 5.0 40 10/20/16 07:27 94 Nasal Cannula 5.0 40 10/20/16 07:27 40 10/20/16 04:00 97.4 89 20 145/88 96 Nasal Cannula 5.0 10/20/16 04:00 82 10/20/16 03:39 92 16 95 Nasal Cannula 5.0 40 10/20/16 03:31 40 10/20/16 03:30 86 16 96 Nasal Cannula 5.0 40 10/20/16 00:00 97.0 99 20 144/80 97 Nasal Cannula 5.0 10/20/16 00:00 82 10/19/16 23:30 88 16 98 Nasal Cannula 5.0 40 10/19/16 23:21 40 10/19/16 23:20 88 16 96 Nasal Cannula 5.0 40 10/19/16 22:00 89 16 99 10/19/16 21:32 92 16 96 Nasal Cannula 5.0 40 10/19/16 21:13 40 10/19/16 21:12 89 16 95 Nasal Cannula 5.0 40 10/19/16 20:00 97.5 87 20 128/64 94 Nasal Cannula 5.0 10/19/16 20:00 87 10/19/16 19:00 81 16 98 Nasal Cannula 5.0 40 10/19/16 18:44 Nasal Cannula 5.0 40 10/19/16 18:43 95 Nasal Cannula 5.0 40 10/19/16 18:43 40 10/19/16 18:43 85 16 96 Nasal Cannula 5.0 40 10/19/16 16:00 83 10/19/16 16:00 98.2 83 22 100/59 96 Nasal Cannula 5.0 10/19/16 15:26 85 20 98 Nasal Cannula 10/19/16 15:15 69 18 94 Nasal Cannula 5.0 Intake and Output 10/19/16 10/20/16 19:00 07:00 Intake Total 395.000 ml 755.000 ml Output Total 400 ml Balance -5.000 ml 755.000 ml Intake Oral 120 ml 480 ml IV Total 275.000 ml 275.000 ml Output Urine Total 400 ml # Voids 2 7 Laboratory Tests 10/20/16 05:10: Sodium Level 140, Potassium Level 4.1, Chloride Level 90L, Carbon Dioxide Level 41*H, Anion Gap 9, Blood Urea Nitrogen 17, Creatinine 0.7, Estimat Glomerular Filtration Rate , Glucose Level 171H, Calcium Level 9.4 Height (Feet): 5 Height (Inches): 5.00 Weight (Pounds): 243 Objective General Appearance: WD/WN, alert Neck: supple Cardiovascular: normal rate, regular rhythm Respiratory/Chest: rhonchi - bilaterally Abdomen: normal bowel sounds, non tender, soft, no organomegaly Edema: no edema noted Arm (L), no edema noted Arm (R), no edema noted Leg (L), no edema noted Leg (R), no edema noted Pedal (L), no edema noted Pedal (R), no edema noted Generalized Neurologic: ed transporter II-XII grossly normal, no motor/sensory deficits, alert, oriented x 3, responsive AMBER MARTINEZ Oct 20, 2016 13:39
[2016-10-20 15:10] LABS: ABG ALLEN TEST POSITIVE; ABG BASE EXCESS 20.1; ABG PCO2 80.6 mmHg (35.0-45.0)
[2016-10-20 16:00] VITALS: BP 113/67
[2016-10-20] MEDS: Montelukast 10mg tablet ORAL SCH (16:35)
--- NOTE | 2016-10-20 19:12 | Wound Care Consultation ---
Wound Assessment Wound Assessment : Wound Present on Admission: Yes New Wound: No Status Change of Wound: No Wound Location Body Site Modif: left, right Wound Location Body Site: breast fold Wound Type: rash Mj Test: Does not Mj Wound Drainage Amount: None Wound Drainage Odor: None/Absent Tissue Surrounding Wound: Erythemic Wound General Appearance: Reddened Wound Comment #1 Left and right breast fold rashes Recommendation -Keep clean and dry -Apply topical Nystatin powder as ordered -Optimize nutrition -Assess and f/u accordingly for any changes ELADIO JACOBSEN RN Oct 20, 2016 19:12
[2016-10-20 20:00] VITALS: BP 132/74
[2016-10-20] MEDS: Levofloxacin 500mg tab ORAL SCH (20:57)
[2016-10-21] VITALS (8 sets, daily range): BP systolic 93–130; BP diastolic 56–71
[2016-10-21] MEDS: DuoNeb 0.5-3(2.5)mg/3ml neb HHN SCH ×6 (03:19→23:24)
--- NOTE | 2016-10-21 04:38 | Progress Note ---
DATE: 10/20/2016 CARDIOLOGY PROGRESS NOTE SUBJECTIVE: The patient continues to have some shortness of breath and congestion, but is overall improved. OBJECTIVE: VITAL SIGNS: Blood pressure 104/62 to 145/88, heart rate 73 to 92, respiratory rate 16 to 21, and afebrile. She is on nasal cannula with 5 liters. LUNGS: Bilateral breath sounds. Diminished at bases. Few rales. HEART: Regular rhythm and rate. Normal S1 and S2. ABDOMEN: Obese. EXTREMITIES: With dependent edema. LABORATORY DATA: Notable for sodium 140, potassium 4.1, chloride 90, bicarbonate 41, BUN 17, and creatinine 0.7. ABG is 7.40, 81, and 80. IMPRESSION: 1. Compensated respiratory acidosis. 2. Metabolic alkalosis. 3. Acute on chronic diastolic congestive heart failure. 4. Pulmonary hypertension. PLAN: 1. Discontinue thiazide. 2. Continue furosemide. 3. Add acetazolamide. 4. Transition from IV to oral furosemide over the next 24 hours. 5. Monitor clinical parameters closely. Ivan Bradley M.D. DR: TIGIST JOB#: [id number] CC:
--- NOTE | 2016-10-21 05:58 | Progress Note ---
DATE: 10/19/2016 CARDIOLOGY PROGRESS NOTE SUBJECTIVE: The patient remains congested and shortness of breath noted. She remains on diuretics. She is off steroids. OBJECTIVE: VITALS: Blood pressure 125/67, pulse 94, and respirations 19. Monitored rhythm, sinus. LUNGS: Bilateral breath sounds with few rales. HEART: Regular rhythm and rate. Normal S1 and S2 with a fourth heart sound. ABDOMEN: Soft. EXTREMITIES: With no edema. LABORATORY DATA: Sodium 143, potassium 4.5, bicarbonate 40, BUN 19, and creatinine 0.7. Magnesium 2.1. White count is 8.6 and hemoglobin 12. IMPRESSION: 1. Acute on chronic diastolic congestive heart failure. 2. Sleep apnea. 3. Asthma exacerbation. 4. Acute on chronic respiratory acidosis. 5. Hypoxia. 6. Obesity. 7. Lymphedema. 8. Type 2 diabetes mellitus. 9. Metabolic alkalosis. PLAN: 1. Cautious diuresis. 2. Monitor electrolytes. 3. May need to add acetazolamide in view of worsening alkalosis. 4. DVT and stress ulcer prophylaxis. Ivan Bradley M.D. DR: JAC JOB#: [id number] CC:
[2016-10-21] MEDS: NovoLOG Insulin Flexpen SUBQ SCH ×4 (06:30→21:48)
[2016-10-21] MEDS: Levothyroxine 125mcg tab ORAL SCH (06:44)
[2016-10-21] MEDS: sitaGLIPtin 50mg tab ORAL SCH (06:44)
[2016-10-21] MEDS: Glimepiride 1mg tab ORAL SCH (06:44)
[2016-10-21 06:54] LABS: ANION GAP 12 (5-15); CALCIUM 8.9 mg/dL (8.6-10.2); CARBON DIOXIDE 37 mEQ/L (20-30); CHLORIDE 88 mEQ/L (98-107); CREATININE 0.6 mg/dL (0.5-0.9); HEMOLYSIS 62; POTASSIUM 4.5 mEQ/L (3.4-4.9); SODIUM 137 mEQ/L (135-145)
[2016-10-21] MEDS: Budesonide HHN 0.25mg/2ml ud HHN SCH ×2 (09:18→19:35)
[2016-10-21] MEDS: Vitamin D 1000 IU Tab ORAL SCH ×2 (09:22→19:59)
[2016-10-21] MEDS: Solifenacin 10mg tab ORAL SCH (09:23)
[2016-10-21] MEDS: SUMAtriptan 100mg tab ORAL PRN (09:23)
[2016-10-21] MEDS: Irbesartan 150mg tablet ORAL SCH (09:23)
[2016-10-21] MEDS: Heparin 5000 units/ml inj SUBQ SCH ×2 (09:24→21:47)
[2016-10-21] MEDS: Nystatin Powder 100,000 units/gm 15gm TOPIC SCH ×3 (09:32→20:00)
--- NOTE | 2016-10-21 11:51 | Pulmonology Progress Note ---
Assessment/Plan Assessment/Plan Assessment Respiratory failure Asthma Hypercapnia Sleep apnea CHF profound hypoxemia obesity Lymphedema Diabetes Plan IV Steroids-off and stable IV antibiotics- dcd IV lasix additional day Respiratory care Oxygen therapy ABG routine labs and monitor resumed home meds BIPAP at HS and PRN; oxygen therapy and titrate guarded overall follow up labs monitor ABG; will reorder impression, plan, and exam edited and reviewed in detail care discussed with RN Subjective Allergies: Coded Allergies: [place] (Unverified Allergy, Unknown, 05/06/16) PENICILLINS (Verified Allergy, Unknown, 06/30/12) Subjective remains alert but weaker BIPAP off weak using at night Objective Last 24 Hour Vital Signs Date Time Temp Pulse Resp B/P Pulse Ox O2 Delivery O2 Flow Rate FiO2 10/21/16 11:21 75 18 96 Nasal Cannula 5.0 10/21/16 09:28 87 18 99 Nasal Cannula 5.0 10/21/16 09:23 114/62 10/21/16 09:19 40 10/21/16 09:18 77 16 96 Nasal Cannula 5.0 10/21/16 08:00 97.7 78 20 114/62 91 Nasal Cannula 5.0 10/21/16 08:00 92 10/21/16 07:13 89 18 99 Nasal Cannula 5.0 10/21/16 07:00 88 20 97 Nasal Cannula 5.0 10/21/16 07:00 97 Nasal Cannula 5.0 10/21/16 07:00 Nasal Cannula 5.0 10/21/16 04:00 40 10/21/16 04:00 80 10/21/16 04:00 98.0 83 17 128/64 92 Bi-pap 40 10/21/16 03:22 76 22 99 Facial 30 10/21/16 03:20 40 10/21/16 03:20 88 16 98 Nasal Cannula 5.0 40 10/21/16 03:19 76 18 99 Bi-pap 40 10/21/16 01:14 72 21 97 Facial 30 10/21/16 00:23 72 25 81 Facial 30 10/21/16 00:00 86 10/21/16 00:00 98.1 90 20 130/71 96 Bi-pap 40 10/21/16 00:00 40 10/20/16 23:40 77 19 100 Nasal Cannula 5.0 40 10/20/16 23:25 86 16 96 Nasal Cannula 5.0 40 10/20/16 23:15 40 10/20/16 20:00 87 10/20/16 20:00 97.9 85 28 132/74 95 Nasal Cannula 5.0 10/20/16 19:30 91 19 99 Nasal Cannula 5.0 40 10/20/16 19:29 91 20 100 Nasal Cannula 5.0 40 10/20/16 18:56 40 10/20/16 18:55 94 Nasal Cannula 5.0 40 10/20/16 18:55 81 18 94 Nasal Cannula 5.0 40 10/20/16 18:55 Nasal Cannula 5.0 40 10/20/16 18:55 81 20 94 Nasal Cannula 5.0 40 10/20/16 18:55 40 10/20/16 16:00 85 10/20/16 16:00 96.8 92 21 113/67 94 Nasal Cannula 5.0 10/20/16 15:30 71 19 99 Nasal Cannula 5.0 40 10/20/16 15:14 40 10/20/16 15:14 73 18 97 Nasal Cannula 5.0 40 10/20/16 12:00 98.2 81 20 119/69 96 Nasal Cannula 5.0 10/20/16 12:00 69 Intake and Output 10/20/16 10/21/16 19:00 07:00 Intake Total 380 ml 360 ml Output Total 1893 ml Balance -1513 ml 360 ml Intake Oral 380 ml 360 ml Output Urine Total 1893 ml # Voids 5 Objective WDWN female morbidly obese NAD improved breath sounds bilaterally with reduced rhonchi and crackles [id number] without MRG distant NABS nontender no HSM no CC significant anasarca with some improvement noted leg erythema and edema nonfocal Laboratory Tests 10/20/16 15:00: Arterial Blood pH 7.405, Arterial Blood Partial Pressure CO2 80.6*H, Arterial Blood Partial Pressure O2 79.9, Arterial Blood HCO3 49.4H, Arterial Blood Oxygen Saturation 95.1, Arterial Blood Base Excess 20.1, Jacob Test Positive 10/21/16 03:30: Sodium Level 137, Potassium Level 4.5, Chloride Level 88L, Carbon Dioxide Level 37H, Anion Gap 12, Blood Urea Nitrogen 14, Creatinine 0.6, Estimat Glomerular Filtration Rate , Glucose Level 147H, Calcium Level 8.9, Magnesium Level 2.1, Pro-B-Type Natriuretic Peptide 325 Current Medications Medications (Trade) Dose Ordered Sig/Chalo Route PRN Reason Start Time Stop Time Status Last Admin Dose Admin Acetaminophen (Tylenol) 650 mg Q4H PRN ORAL Mild Pain/Temp > 100.5 10/17/16 14:15 11/16/16 14:14 Acetazolamide (Diamox) 250 mg TWICE A DAY ORAL 10/21/16 09:00 11/20/16 08:59 10/21/16 09:22 Al Hydroxide/Mg Hydroxide (Mylanta) 30 ml Q4H PRN ORAL INDIGESTION 10/17/16 14:15 11/16/16 14:14 Albuterol/ Ipratropium (DuoNeb 0.5-3(2.5)mg/3ml) 3 ml Q4H PRN HHN Shortness of Breath 10/17/16 14:15 10/22/16 14:14 Albuterol/ Ipratropium (DuoNeb 0.5-3(2.5)mg/3ml) 3 ml Q4HRT HHN 10/17/16 11:00 10/22/16 10:59 10/21/16 11:21 Budesonide (Pulmicort) 0.5 mg EVERY 12 HOURS HHN 10/17/16 21:00 11/16/16 20:59 10/21/16 09:18 Clobetasol Propionate (Temovate) 1 applic DAILY PRN TOPIC Itching 10/17/16 18:00 11/16/16 17:59 Clotrimazole (Lotrimin) 1 applic DAILY TOPIC 10/18/16 09:00 11/17/16 08:59 UNV Dextrose (Dextrose 50%) STAT PRN IV Hypoglycemia 10/17/16 15:45 11/16/16 15:44 Estradiol (Estrace) 20 mg QWEEK ORAL 10/23/16 15:45 11/22/16 15:44 UNV Furosemide (Lasix) 40 mg DAILY IV 10/17/16 11:00 11/16/16 10:59 10/21/16 09:24 Gabapentin (Neurontin) 300 mg DAILYPRN PRN ORAL NEUROPATHIC PAIN 10/17/16 15:45 11/16/16 15:44 Glimepiride (Amaryl) 1 mg ACBREAKFAST ORAL 10/18/16 06:30 11/17/16 06:29 10/21/16 06:44 Guaifenesin/ Codeine Phosphate (Robitussin with codeine) 5 ml Q4H PRN ORAL For Cough 10/17/16 11:45 11/16/16 11:44 10/19/16 10:00 Heparin Sodium (Porcine) (Heparin 5000 units/ml) 5,000 units EVERY 12 HOURS SUBQ 10/17/16 21:00 11/16/16 20:59 10/21/16 09:24 Insulin Aspart (NovoLOG) BEFORE MEALS AND HS SUBQ 10/17/16 11:30 11/16/16 11:29 10/19/16 16:25 Irbesartan (Avapro) 150 mg DAILY ORAL 10/18/16 09:00 11/17/16 08:59 10/21/16 09:23 Levofloxacin (Levaquin) 500 mg QHS ORAL 10/17/16 21:00 10/22/16 21:01 10/20/16 20:57 Levothyroxine Sodium (Synthroid) 250 mcg ACBREAKFAST ORAL 10/18/16 06:30 11/17/16 06:29 10/21/16 06:44 Montelukast Sodium (Singulair) 10 mg QPM ORAL 10/17/16 16:30 11/16/16 16:29 10/20/16 16:35 Non-Formulary Medication (Non-Formulary Med) 1 ea DAILY ORAL 10/18/16 09:00 11/17/16 08:59 UNV Nystatin (Nystop Powder) 1 applic THREE TIMES A DAY TOPIC 10/21/16 09:00 11/20/16 08:59 10/21/16 09:32 Pantoprazole (Protonix) 40 mg DAILY ORAL 10/18/16 09:00 11/17/16 08:59 10/21/16 09:22 Sitagliptin Phosphate (Januvia) 50 mg ACBREAKFAST ORAL 10/18/16 06:30 11/17/16 06:29 10/21/16 06:44 Solifenacin (Vesicare) 10 mg DAILY ORAL 10/18/16 09:00 11/17/16 08:59 10/21/16 09:23 Sumatriptan Succinate (Imitrex) 100 mg DAILY PRN ORAL PRN MIGRAINE 10/18/16 09:00 11/17/16 08:59 10/21/16 09:23 Vancomycin HCl (Vanco rx to dose) 1 ea DAILY PRN MISC PRN RX PROTOCOL 10/18/16 09:00 11/17/16 08:59 Vitamin D (Vitamin D) 1,000 intlu BID ORAL 10/17/16 18:00 11/16/16 17:59 10/21/16 09:22 Zolpidem Tartrate (Ambien) 5 mg HSPRN PRN ORAL Insomnia 10/17/16 14:15 11/16/16 14:14 PHIL VELASCO Oct 21, 2016 11:51
[2016-10-21 12:48] LABS: ABG ALLEN TEST POSITIVE; ABG BASE EXCESS 17.7; ABG PCO2 60.4 mmHg (35.0-45.0)
[2016-10-21] MEDS: Montelukast 10mg tablet ORAL SCH (16:35)
--- NOTE | 2016-10-21 17:35 | General Progress Note ---
Assessment/Plan Problem List: (1) Atelectasis vs Pneumonia (2) Possible pneumonia (3) Shortness of breath ICD Codes: R06.02 - Shortness of breath SNOMED: 699342960 (4) Diabetes mellitus ICD Codes: E11.9 - Type 2 diabetes mellitus without complications SNOMED: 37139228 (5) Edema ICD Codes: R60.9 - Edema, unspecified SNOMED: 858125871 (6) Obesity ICD Codes: E66.9 - Obesity, unspecified SNOMED: 337454266 (7) CHF (congestive heart failure), NYHA class IV ICD Codes: I50.9 - Heart failure, unspecified SNOMED: 597196259, 003719891 (8) Asthma ICD Codes: J45.909 - Unspecified asthma, uncomplicated SNOMED: 337245585 Status: stable, progressing Assessment/Plan off steroids resp rx diuresis per pulm abx monitor bs dvt/stress ulcer prophylaxis monitor labs and cxr slow improvement Subjective ROS Limited/Unobtainable: No Constitutional: Reports: malaise, weakness HEENT: Reports: no symptoms Cardiovascular: Reports: no symptoms Respiratory: Reports: cough, shortness of breath, wheezing Gastrointestinal/Abdominal: Reports: no symptoms Genitourinary: Reports: no symptoms Neurologic/Psychiatric: Reports: no symptoms Endocrine: Reports: no symptoms Hematologic/Lymphatic: Reports: no symptoms Allergies: Coded Allergies: [place] (Unverified Allergy, Unknown, 05/06/16) PENICILLINS (Verified Allergy, Unknown, 06/30/12) All Systems: reviewed and negative except above Subjective less sob. less congested. no chest pain on iv lasix. sleepy this am. Objective Last 24 Hour Vital Signs Date Time Temp Pulse Resp B/P Pulse Ox O2 Delivery O2 Flow Rate FiO2 10/21/16 14:17 97.7 73 16 115/56 97 Nasal Cannula 5.0 10/21/16 14:00 97.7 73 16 115/56 97 Nasal Cannula 5.0 10/21/16 12:00 73 16 115/62 97 Nasal Cannula 5.0 10/21/16 12:00 73 10/21/16 11:29 83 18 99 Nasal Cannula 5.0 10/21/16 11:21 75 18 96 Nasal Cannula 5.0 10/21/16 09:28 87 18 99 Nasal Cannula 5.0 10/21/16 09:23 114/62 10/21/16 09:19 40 10/21/16 09:18 77 16 96 Nasal Cannula 5.0 10/21/16 08:00 97.7 78 20 114/62 91 Nasal Cannula 5.0 10/21/16 08:00 92 10/21/16 07:13 89 18 99 Nasal Cannula 5.0 10/21/16 07:00 88 20 97 Nasal Cannula 5.0 10/21/16 07:00 97 Nasal Cannula 5.0 10/21/16 07:00 Nasal Cannula 5.0 10/21/16 04:00 40 10/21/16 04:00 80 10/21/16 04:00 98.0 83 17 128/64 92 Bi-pap 40 10/21/16 03:22 76 22 99 Facial 30 10/21/16 03:20 40 10/21/16 03:20 88 16 98 Nasal Cannula 5.0 40 10/21/16 03:19 76 18 99 Bi-pap 40 10/21/16 01:14 72 21 97 Facial 30 10/21/16 00:23 72 25 81 Facial 30 10/21/16 00:00 86 10/21/16 00:00 98.1 90 20 130/71 96 Bi-pap 40 10/21/16 00:00 40 10/20/16 23:40 77 19 100 Nasal Cannula 5.0 40 10/20/16 23:25 86 16 96 Nasal Cannula 5.0 40 10/20/16 23:15 40 10/20/16 20:00 87 10/20/16 20:00 97.9 85 28 132/74 95 Nasal Cannula 5.0 10/20/16 19:30 91 19 99 Nasal Cannula 5.0 40 10/20/16 19:29 91 20 100 Nasal Cannula 5.0 40 10/20/16 18:56 40 10/20/16 18:55 94 Nasal Cannula 5.0 40 10/20/16 18:55 81 18 94 Nasal Cannula 5.0 40 10/20/16 18:55 Nasal Cannula 5.0 40 10/20/16 18:55 81 20 94 Nasal Cannula 5.0 40 10/20/16 18:55 40 Intake and Output 10/20/16 10/21/16 19:00 07:00 Intake Total 380 ml 360 ml Output Total 1893 ml Balance -1513 ml 360 ml Intake Oral 380 ml 360 ml Output Urine Total 1893 ml # Voids 5 Laboratory Tests 10/21/16 03:30: Sodium Level 137, Potassium Level 4.5, Chloride Level 88L, Carbon Dioxide Level 37H, Anion Gap 12, Blood Urea Nitrogen 14, Creatinine 0.6, Estimat Glomerular Filtration Rate , Glucose Level 147H, Calcium Level 8.9, Magnesium Level 2.1, Pro-B-Type Natriuretic Peptide 325 10/21/16 11:51: Arterial Blood pH 7.484H, Arterial Blood Partial Pressure CO2 60.4*H, Arterial Blood Partial Pressure O2 63.9L, Arterial Blood HCO3 44.4H, Arterial Blood Oxygen Saturation 92.5, Arterial Blood Base Excess 17.7, Jacob Test Positive Height (Feet): 5 Height (Inches): 5.00 Weight (Pounds): 243 Objective General Appearance: WD/WN, alert Neck: supple Cardiovascular: normal rate, regular rhythm Respiratory/Chest: minimal rhonchi/wheezes bilaterally Abdomen: normal bowel sounds, non tender, soft, no organomegaly Edema: no edema noted Arm (L), no edema noted Arm (R), no edema noted Leg (L), no edema noted Leg (R), no edema noted Pedal (L), no edema noted Pedal (R), no edema noted Generalized Neurologic: analysis manager II-XII grossly normal, no motor/sensory deficits, alert, oriented x 3, responsive AMBER MARTINEZ Oct 21, 2016 17:35
[2016-10-21] MEDS: Levofloxacin 500mg tab ORAL SCH (21:45)
[2016-10-22] VITALS: BP 111/55
--- NOTE | 2016-10-22 02:28 | Progress Note ---
DATE: 10/21/2016 CARDIOLOGY PROGRESS NOTE SUBJECTIVE: The patient is less congested and less short of breath. Remaining on IV diuretics. Monitored rhythm, sinus tachycardia. OBJECTIVE: VITAL SIGNS: Blood pressure 115/56, pulse 73, and respirations 16. LUNGS: Rhonchi and rales. HEART: Regular rhythm and rate. Normal S1 and S2. ABDOMEN: Soft. EXTREMITIES: Dependent nonpitting edema bilaterally. LABORATORY DATA: Sodium 137, potassium 4.5, bicarbonate 37, BUN 14, and creatinine 0.6. Magnesium is 2.1. Pro-natriuretic peptide is 325. ABG is 7.48, 60, and 64. IMPRESSION: 1. Acute on chronic diastolic congestive heart failure, now clinically compensated. 2. Secondary sinus tachycardia. 3. Acute on chronic respiratory acidosis with compensatory metabolic alkalosis. 4. Chronic obstructive pulmonary disease exacerbation. 5. Paroxysmal atrial ectopy. 6. Lymphedema. PLAN: 1. BiPAP support. 2. Transition to oral diuretic over next 24hrs, and reassess continued use of acetazolamide. 3. Monitor blood gases. 4. Remains high risk. Ivan Bradlye M.D. DR: TIGIST JOB#: [id number] CC: LISANDRO
[2016-10-22] MEDS: DuoNeb 0.5-3(2.5)mg/3ml neb HHN SCH ×2 (03:22→07:55)
[2016-10-22 04:00] VITALS: BP 115/67
[2016-10-22] MEDS: Levothyroxine 125mcg tab ORAL SCH (06:09)
[2016-10-22] MEDS: Glimepiride 1mg tab ORAL SCH (06:09)
[2016-10-22] MEDS: sitaGLIPtin 50mg tab ORAL SCH (06:09)
[2016-10-22] MEDS: NovoLOG Insulin Flexpen SUBQ SCH ×3 (06:12→11:32)
--- NOTE | 2016-10-22 07:42 | Pulmonology Progress Note ---
Assessment/Plan Assessment/Plan Assessment Respiratory failure Asthma Hypercapnia Sleep apnea CHF profound hypoxemia obesity Lymphedema Diabetes Plan IV lasix to convert to po Respiratory care Oxygen therapy ABG routine labs and monitor BIPAP at HS and PRN; oxygen therapy and titrate guarded overall follow up labs ABG better dc today impression, plan, and exam edited and reviewed in detail care discussed with RN Subjective Allergies: Coded Allergies: [place] (Unverified Allergy, Unknown, 05/06/16) PENICILLINS (Verified Allergy, Unknown, 06/30/12) Subjective remains alert and better this am BIPAP off using at night Objective Last 24 Hour Vital Signs Date Time Temp Pulse Resp B/P Pulse Ox O2 Delivery O2 Flow Rate FiO2 10/22/16 04:00 98.1 65 24 115/67 94 Nasal Cannula 5.0 10/22/16 04:00 105 10/22/16 03:23 85 18 97 Nasal Cannula 5.0 10/22/16 03:22 82 18 97 Nasal Cannula 5.0 10/22/16 01:12 71 18 98 Facial 40 10/22/16 00:00 83 10/22/16 00:00 98.0 85 20 111/55 99 Nasal Cannula 5.0 10/21/16 23:27 77 18 97 Nasal Cannula 5.0 10/21/16 23:27 74 18 97 Nasal Cannula 5.0 10/21/16 22:00 5.0 10/21/16 20:00 80 10/21/16 20:00 97.7 81 19 120/64 96 Nasal Cannula 5.0 10/21/16 19:34 97 18 97 Nasal Cannula 5.0 10/21/16 19:33 102 18 97 Nasal Cannula 5.0 10/21/16 19:32 Nasal Cannula 5.0 10/21/16 19:32 103 18 94 Nasal Cannula 5.0 10/21/16 19:32 105 16 95 Nasal Cannula 5.0 10/21/16 19:32 40 10/21/16 19:31 95 Nasal Cannula 5.0 10/21/16 17:58 68 18 Nasal Cannula 5.0 10/21/16 16:00 97.7 60 21 93/61 95 Nasal Cannula 5.0 10/21/16 16:00 80 10/21/16 15:59 86 18 99 Nasal Cannula 5.0 10/21/16 15:53 85 18 96 Nasal Cannula 5.0 10/21/16 14:17 97.7 73 16 115/56 97 Nasal Cannula 5.0 10/21/16 14:00 97.7 73 16 115/56 97 Nasal Cannula 5.0 10/21/16 12:00 73 16 115/62 97 Nasal Cannula 5.0 10/21/16 12:00 73 10/21/16 11:29 83 18 99 Nasal Cannula 5.0 10/21/16 11:21 75 18 96 Nasal Cannula 5.0 10/21/16 09:28 87 18 99 Nasal Cannula 5.0 10/21/16 09:23 114/62 10/21/16 09:19 40 10/21/16 09:18 77 16 96 Nasal Cannula 5.0 10/21/16 08:00 97.7 78 20 114/62 91 Nasal Cannula 5.0 10/21/16 08:00 92 Intake and Output 10/21/16 10/22/16 19:00 07:00 Intake Total 480 ml Output Total 1500 ml 700 ml Balance -1500 ml -220 ml Intake Oral 480 ml Output Urine Total 1500 ml 700 ml # Voids 2 Objective WDWN female morbidly obese NAD stable breath sounds bilaterally with no further rhonchi and crackles [id number] without MRG distant NABS nontender no HSM no CC reduced anasarca with some improvement noted leg erythema and edema better nonfocal Laboratory Tests 10/21/16 11:51: Arterial Blood pH 7.484H, Arterial Blood Partial Pressure CO2 60.4*H, Arterial Blood Partial Pressure O2 63.9L, Arterial Blood HCO3 44.4H, Arterial Blood Oxygen Saturation 92.5, Arterial Blood Base Excess 17.7, Jacob Test Positive Current Medications Medications (Trade) Dose Ordered Sig/Chalo Route PRN Reason Start Time Stop Time Status Last Admin Dose Admin Acetaminophen (Tylenol) 650 mg Q4H PRN ORAL Mild Pain/Temp > 100.5 10/17/16 14:15 11/16/16 14:14 Acetazolamide (Diamox) 250 mg TWICE A DAY ORAL 10/21/16 09:00 11/20/16 08:59 10/21/16 19:59 Al Hydroxide/Mg Hydroxide (Mylanta) 30 ml Q4H PRN ORAL INDIGESTION 10/17/16 14:15 11/16/16 14:14 Albuterol/ Ipratropium (DuoNeb 0.5-3(2.5)mg/3ml) 3 ml Q4H PRN HHN Shortness of Breath 10/17/16 14:15 10/22/16 14:14 Albuterol/ Ipratropium (DuoNeb 0.5-3(2.5)mg/3ml) 3 ml Q4HRT HHN 10/17/16 11:00 10/22/16 10:59 10/22/16 03:22 Budesonide (Pulmicort) 0.5 mg EVERY 12 HOURS HHN 10/17/16 21:00 11/16/16 20:59 10/21/16 19:35 Clobetasol Propionate (Temovate) 1 applic DAILY PRN TOPIC Itching 10/17/16 18:00 11/16/16 17:59 Dextrose (Dextrose 50%) STAT PRN IV Hypoglycemia 10/17/16 15:45 11/16/16 15:44 Furosemide (Lasix) 40 mg DAILY IV 10/17/16 11:00 11/16/16 10:59 10/21/16 09:24 Gabapentin (Neurontin) 300 mg DAILYPRN PRN ORAL NEUROPATHIC PAIN 10/17/16 15:45 11/16/16 15:44 Glimepiride (Amaryl) 1 mg ACBREAKFAST ORAL 10/18/16 06:30 11/17/16 06:29 10/22/16 06:09 Guaifenesin/ Codeine Phosphate (Robitussin with codeine) 5 ml Q4H PRN ORAL For Cough 10/17/16 11:45 11/16/16 11:44 10/19/16 10:00 Heparin Sodium (Porcine) (Heparin 5000 units/ml) 5,000 units EVERY 12 HOURS SUBQ 10/17/16 21:00 11/16/16 20:59 10/21/16 21:47 Insulin Aspart (NovoLOG) BEFORE MEALS AND HS SUBQ 10/17/16 11:30 11/16/16 11:29 10/22/16 06:12 Irbesartan (Avapro) 150 mg DAILY ORAL 10/18/16 09:00 11/17/16 08:59 10/21/16 09:23 Levofloxacin (Levaquin) 500 mg QHS ORAL 10/17/16 21:00 10/22/16 21:01 10/21/16 21:45 Levothyroxine Sodium (Synthroid) 250 mcg ACBREAKFAST ORAL 10/18/16 06:30 11/17/16 06:29 10/22/16 06:09 Montelukast Sodium (Singulair) 10 mg QPM ORAL 10/17/16 16:30 11/16/16 16:29 10/21/16 16:35 Nystatin (Nystop Powder) 1 applic THREE TIMES A DAY TOPIC 10/21/16 09:00 11/20/16 08:59 10/21/16 20:00 Pantoprazole (Protonix) 40 mg DAILY ORAL 10/18/16 09:00 11/17/16 08:59 10/21/16 09:22 Sitagliptin Phosphate (Januvia) 50 mg ACBREAKFAST ORAL 10/18/16 06:30 11/17/16 06:29 10/22/16 06:09 Solifenacin (Vesicare) 10 mg DAILY ORAL 10/18/16 09:00 11/17/16 08:59 10/21/16 09:23 Sumatriptan Succinate (Imitrex) 100 mg DAILY PRN ORAL PRN MIGRAINE 10/18/16 09:00 11/17/16 08:59 10/21/16 09:23 Vancomycin HCl (Vanco rx to dose) 1 ea DAILY PRN MISC PRN RX PROTOCOL 10/18/16 09:00 11/17/16 08:59 Vitamin D (Vitamin D) 1,000 intlu BID ORAL 10/17/16 18:00 11/16/16 17:59 10/21/16 19:59 Zolpidem Tartrate (Ambien) 5 mg HSPRN PRN ORAL Insomnia 10/17/16 14:15 11/16/16 14:14 PHIL VELASCO 14, 2017 07:42
[2016-10-22] MEDS: Budesonide HHN 0.25mg/2ml ud HHN SCH (07:57)
[2016-10-22 08:00] VITALS: BP 109/64
[2016-10-22] MEDS: Nystatin Powder 100,000 units/gm 15gm TOPIC SCH ×2 (09:00→12:58)
[2016-10-22] MEDS: Vitamin D 1000 IU Tab ORAL SCH (09:31)
[2016-10-22] MEDS: Solifenacin 10mg tab ORAL SCH (09:31)
[2016-10-22] MEDS: Irbesartan 150mg tablet ORAL SCH (09:33)
[2016-10-22] MEDS: Heparin 5000 units/ml inj SUBQ SCH (09:35)
[2016-10-22 12:00] VITALS: BP 105/58
[2016-10-22] MEDS ORDERED: NS 275ml ONE (17:06)
--- NOTE | 2016-10-23 01:48 | Discharge Summary ---
DATE OF ADMISSION: 10/17/2016 DATE OF DISCHARGE: 10/22/2016 ADMISSION DIAGNOSES: 1. Chronic obstructive pulmonary disease exacerbation. 2. Congestive heart failure exacerbation. 3. Hypertension. 4. Bronchitis. 5. Possible pneumonia. DISCHARGE DIAGNOSES: 1. Chronic obstructive pulmonary disease exacerbation. 2. Congestive heart failure exacerbation. 3. Hypertension. 4. Bronchitis. 5. Possible pneumonia. BRIEF HISTORY AND HOSPITAL COURSE: The patient is a pleasant 76-year-old female who was admitted with complaints of shortness of breath. She was diagnosed with history of chronic obstructive pulmonary disease exacerbation, possible pneumonia, and bronchitis. She received intravenous steroids, respiratory treatments, and intravenous antibiotics. She did have x-ray evidence of congestive heart failure exacerbation. She was diuresed. She improved. On discharge, she was doing well. She will be discharged home. She will require home oxygen. DISCHARGE MEDICATIONS: Please see discharge medication list for discharge medications. DIET: Cardiac diet. ACTIVITY: Ad-john paul. FOLLOW UP: The patient to follow up by her [facility] in one to two weeks. Maximo Chatman M.D. DR: ALAINA JOB#: [id number] CC:
--- NOTE | 2016-10-23 03:18 | Progress Note ---
DATE: 10/22/2016 CARDIOLOGY PROGRESS NOTE SUBJECTIVE: The patient has less congestion and less shortness of breath. Diuretics have been converted to oral dosing. The patient has been on acetazolamide as well to help to stimulate respiratory drive by correcting metabolic alkalosis. OBJECTIVE: VITAL SIGNS: Blood pressure 115/67, pulse 65 to 105, respiratory rate 18 to 24, and afebrile. NECK: Supple. LUNGS: With coarse breath sounds. No wheezing. HEART: Regular rhythm and rate. Normal S1 and S2. ABDOMEN: Soft. EXTREMITIES: With dependent edema. LABORATORY DATA: No new laboratories. IMPRESSION: 1. Acute on chronic respiratory acidosis, improved. 2. Acute on chronic diastolic congestive heart failure, improved. 3. Chronic obstructive pulmonary disease exacerbation, improved. 4. Metabolic alkalosis, recovering. 5. Secondary sinus tachycardia, largely resolved. 6. Lymphedema, chronic. PLAN: 1. Continue maintenance dose. 2. Oral diuretic. 3. Discontinue acetazolamide once bicarbonate is below 35. 4. Monitor cardiopulmonary parameters. 5. No role for antiarrhythmics at this time. Ivan Bradley M.D. DR: TIGIST JOB#: [id number] CC:
--- NOTE | 2016-10-25 00:18 | Progress Note ---
DATE: 10/17/2016 CARDIOLOGY PROGRESS NOTE SUBJECTIVE: The patient was seen and evaluated. She remains with congestion and shortness of breath with no significant progress over the past 24 hours. She is on around the clock "bronchodilator nebulizer treatments", intravenous steroids and diuretics. OBJECTIVE: VITAL SIGNS: Blood pressure 115/68, pulse 76, respiratory rate 18, afebrile, and oxygen saturation 92% on five liters nasal cannula. LUNGS: Coarse breath sounds, rhonchi and few wheezes. CARDIAC: Regular rhythm and rate. Normal S1 and S2. ABDOMEN: Soft. EXTREMITIES: With dependent edema. LABORATORY AND DIAGNOSTIC DATA: Sodium 139, potassium 5.2, bicarbonate 33, BUN 16 and creatinine 0.6. IMPRESSION: 1. Chronic obstructive pulmonary disease exacerbation. 2. Acute bronchospasm. 3. Acute on chronic respiratory acidosis. 4. Compensatory metabolic alkalosis. 5. Mild hyperkalemia. 6. Acute on chronic diastolic congestive heart failure. PLAN: BiPAP, oxygen titration, diuresis, IV steroids, empiric IV antibiotics, DVT and stress ulcer prophylaxis and monitor acid-based status closely. Ivan Bradley M.D. DR: MARTÍN JOB#: [id number] CC: LISANDRO
--- NOTE | 2016-10-25 00:48 | Consultation ---
DATE OF CONSULTATION: 10/16/2016 CARDIOLOGY CONSULTATION CONSULTING PHYSICIAN: Ivan Bradley M.D. REQUESTING PHYSICIAN: 1. Angelo Darling M.D. 2. Maximo Chatman M.D. REASON: Chest pain, shortness of breath in the setting of chronic obstructive pulmonary disease exacerbation. HISTORY OF PRESENT ILLNESS: This is a 76-year-old female with a known history of chronic obstructive pulmonary disease, who presents to the hospital with worsening shortness of breath, congestion, and swelling despite increasing medications as an outpatient. She has had cough, sputum production, chest tightness with difficulty breathing. She has had nasal congestion and swelling. Her medication regimens were reviewed and reconciled. ALLERGIES: Include penicillin. PAST MEDICAL HISTORY: Includes, 1. Hypertension. 2. Chronic obstructive pulmonary disease. 3. Insomnia. 4. Congestive heart failure. 5. history of lung mass, status post thymectomy. 6. Kej-vyyizvl-lwexxurer diabetes mellitus. FAMILY HISTORY: Notable for mother dying of cerebral hemorrhage. SOCIAL HISTORY: No smoking, alcohol, or substance abuse. REVIEW OF SYSTEMS: No visual disturbance. She has had leg swelling. She does have chest tightness associated with her cough. She does have stress incontinence associated with her cough. No dysuria. She has not had any change in bowel habits. There is no history of seizure or stroke. She does have a history of psychiatric disorder. There is no history of thyroid disorder. The patient does have a history of type 2 diabetes mellitus, on oral therapy. PHYSICAL EXAMINATION: VITAL SIGNS: Blood pressure of 111/66, pulse 86, respirations 12, and no fevers. There is some accessory muscle use. LUNGS: Diminished breath sounds and subcostal retractions and 1+ edema. HEART: Regular rhythm and rate. Normal S1, S2. ABDOMEN: Soft with no hepatomegaly. EXTREMITIES: Capillary refill is diminished. There is no asterixis. LABORATORY DATA: White count 9.0 and hemoglobin 11.8. Sodium 138, potassium 4.6, bicarbonate 34, BUN 11, creatinine 0.7, and glucose 126. IMPRESSION: 1. Acute bronchospasm. 2. Chronic obstructive pulmonary disease exacerbation. 3. Acute on chronic diastolic congestive heart failure. 4. Acute on chronic respiratory acidosis. 5. Sleep apnea. 6. Type 2 diabetes mellitus. 7. Lymphedema. PLAN: 1. Intravenous steroids. 2. Intravenous antibiotics. 3. Inhaled bronchodilators. 4. Monitor acid-based status. 5. BiPAP support. 6. Titrate oxygen. 7. Consider diuresis. 8. DVT and stress ulcer prophylaxes. 9. Insulin coverage by sliding scale. Ivan Bradley M.D. DR: ASHLYN JOB#: [id number] CC:
--- NOTE | 2016-10-25 00:58 | Progress Note ---
DATE: 10/18/2016 CARDIOLOGY PROGRESS NOTE SUBJECTIVE: The patient was seen and evaluated. Case was discussed with Dr. Darling and Dr. Chatman. The patient remains in significant respiratory distress, congested and with moderate secretions. OBJECTIVE: VITAL SIGNS: Blood pressure 95/40, pulse 74, respirations 16, and afebrile. Oxygen saturation on four liters 95%. LUNGS: Diminished breath sounds. Scattered rhonchi. Few wheezes. CARDIAC: Regular rhythm and rate. Normal S1 and S2. ABDOMEN: Soft. EXTREMITIES: Dependent edema. LABORATORY DATA: ABG reveals pH 7.26, pCO2 86, and PO2 59. IMPRESSION: 1. Acute on chronic respiratory acidosis. 2. Hypoxia. 3. Hypercarbia. 4. Acute on chronic diastolic congestive heart failure. 5. Acute myocardial ischemia due to poor acid-based status. 6. Acute bronchospasm. PLAN: 1. Taper intravenous steroids. 2. Inhaled bronchodilators. 3. Intravenous diuresis. 4. DVT prophylaxis. 5. Transfer to a monitored bed for higher level of care, as she is quite tenuous presently. Ivan Bradley M.D. DR: TIGIST JOB#: [id number] CC: LISANDRO
== END 2016-10-22 17:07 | disposition home health service (06) | DRG 190 ==
LOC: 4W 12:27 → 2W 10-17 10:30
DX: J44.1 Chronic obstructive pulmonary disease with (acute) exacerbation (principal); I50.33 Acute on chronic diastolic (congestive) heart failure; J18.9 Pneumonia, unspecified organism; J96.91 Respiratory failure, unspecified with hypoxia; J96.92 Respiratory failure, unspecified with hypercapnia; Z68.41 Body mass index [BMI] 40.0-44.9, adult; E66.01 Morbid (severe) obesity due to excess calories; E87.2 Acidosis; I27.2 Other secondary pulmonary hypertension; I89.0 Lymphedema, not elsewhere classified; I10 Essential (primary) hypertension; J40 Bronchitis, not specified as acute or chronic; E11.9 Type 2 diabetes mellitus without complications; J45.909 Unspecified asthma, uncomplicated; Z88.0 Allergy status to penicillin
CPT/HCPCS: 36415; 36600; 71010; 80048; 80202; 82803; 82962; 83036; 83735; 83880; 84100; 85025; 94640; 94660; 94664; 94760; J1815; J7620

== ENCOUNTER 2019-05-19 13:12 | Outpatient (RCR) | payer MEDICARE, OTHER ==
[~2019-05-19 13:12] MED LIST changes: +CLARITIN10 MG ORAL; +CLOTRIMAZOLE15 GM TOPIC; +DEXILANT60 MG ORAL; +DIOVAN HCT 1601 EAC1 ORAL; +FUROSEMIDE20 M1 ORAL; +IMITREX50 MG ORAL; +MYRBETRIQ50 MG PO; +NASONEX17 GM NASAL; +NEURONTIN100 MG ORAL; +PATADAY2.5 ML BOTH EYES; +PERFOROMIS20 MCG/2 M IH; +PULMICORT0.5 MG/2 M IH; +RESTASIS1 EACH BOTH EYES; +ROBITUSSIN AC5 ML ORAL; +VAGIFEM10 MC1 VG; +VENTOLIN HFA18 GM INH
== END 2019-06-10 | disposition home or self-care (01) ==
LOC: WCC 13:12
DX: L03.114 Cellulitis of left upper limb (principal); S41.102D Unspecified open wound of left upper arm, subsequent encounter; X58.XXXD Exposure to other specified factors, subsequent encounter; Z79.899 Other long term (current) drug therapy; I10 Essential (primary) hypertension; E11.9 Type 2 diabetes mellitus without complications; E66.01 Morbid (severe) obesity due to excess calories; E03.9 Hypothyroidism, unspecified; Z88.0 Allergy status to penicillin
CPT/HCPCS: 11042; 11043; 73221; 82962; 87070; 87181; 87205; G0463

== ENCOUNTER 2019-05-19 14:19 | Outpatient (CLI) | payer MEDICARE, OTHER ==
--- NOTE | 2019-05-19 16:13 | Diagnostic Imaging Report ---
Indication: Ulceration and wound posterior part of the elbow. Concern for osteomyelitis Technique: MRI of the left elbow was imaged in a 1.5 Ofe magnet. Pulse sequences obtained include multiplanar T1 fast spin-echo, multiplanar STIR, Proton FSE w/ fat saturation, Axial T2 FSE w/ fat sat. No gadolinium given. Comparison: None Findings: A marker was placed in the area of the wound which is posterior to the elbow. The underlying subcutaneous fat demonstrates reticulation and there is fluid in the olecranon bursa. There is trace fluid in the joint space. The adjacent olecranon bone appears normal in signal as does the remainder of the ulna. There is no bone marrow edema present. The radius and the visualized humerus appear normal in signal. Triceps tendon is unremarkable. IMPRESSION: Olecranon bursitis deep to area of ulceration and clinical infection. Subcutaneous reticulation also noted. Findings consistent with cellulitis. No evidence of acute osteomyelitis.
== END 2019-05-19 16:19 | disposition home or self-care (01) ==
LOC: RAD 14:19
DX: M86.9 Osteomyelitis, unspecified (principal); M70.22 Olecranon bursitis, left elbow
CPT/HCPCS: 87070; 87181; 87205

== ENCOUNTER 2019-10-06 13:18 | Outpatient (RCR) | payer MEDICARE, OTHER | END 2019-10-09 | disposition home or self-care (01) | LOC: WCC 13:18 | DX: L98.498 Non-pressure chronic ulcer of skin of other sites with other specified severity (principal); I10 Essential (primary) hypertension; E11.9 Type 2 diabetes mellitus without complications; E03.9 Hypothyroidism, unspecified; Z88.0 Allergy status to penicillin | CPT/HCPCS: 11043; 87070; 87205 ==

== ENCOUNTER 2019-10-13 13:33 | Outpatient (RCR) | payer MEDICARE, OTHER | END 2019-11-09 | disposition home or self-care (01) | LOC: WCC 13:33 | DX: L98.498 Non-pressure chronic ulcer of skin of other sites with other specified severity (principal); L97.811 Non-pressure chronic ulcer of other part of right lower leg limited to breakdown of skin; Z88.0 Allergy status to penicillin; E89.0 Postprocedural hypothyroidism; E03.9 Hypothyroidism, unspecified; E11.9 Type 2 diabetes mellitus without complications; E66.01 Morbid (severe) obesity due to excess calories | CPT/HCPCS: G0463 ==

== ENCOUNTER 2020-02-16 10:17 | Outpatient (RCR) | payer MEDICARE, OTHER | END 2020-03-10 | disposition home or self-care (01) | LOC: WCC 10:17 | DX: M70.22 Olecranon bursitis, left elbow (principal); I10 Essential (primary) hypertension; E11.9 Type 2 diabetes mellitus without complications; E03.9 Hypothyroidism, unspecified; Z88.0 Allergy status to penicillin | CPT/HCPCS: G0463 ==

== ENCOUNTER → 2020-02-16 | Outpatient (CLI) | payer MEDICARE, OTHER ==
--- NOTE | 2020-02-16 14:03 | Diagnostic Imaging Report ---
Indication: Cough Technique: One view of the chest Comparison: 10/16/2016 Findings: There is elevation left hemidiaphragm. There is some left basilar atelectasis. There is generalized mild interstitial prominence, probably on the basis of senescent changes and more conspicuous due to different technique. There is some central bronchial wall thickening. No focal airspace consolidation. Pleural spaces are clear. There are degenerative spondylosis changes and the bones appear osteoporotic. Old healed left rib fracture deformities are again noted Impression: Generalized mild interstitial prominence and central bronchial wall thickening, probably on the basis of senescent change. No definite acute process Left basilar atelectasis and elevated left hemidiaphragm Other findings as noted
== END | disposition home or self-care (01) ==
LOC: RAD 11:56
PROVIDERS: ATTEND Orthopaedic Surgery Hand Surgery
DX: R05 Cough (principal); J98.11 Atelectasis; M47.9 Spondylosis, unspecified
CPT/HCPCS: 71046